=== PATIENT | female | born 1940 | race Caucasian/White ===

== ENCOUNTER 2023-07-16 15:00 | Outpatient (RCR) | payer MEDICARE, SELFPAY ==
[2023-06-27 16:14] VITALS: PULSE 72
== END 2023-07-24 17:33 | disposition home or self-care (01) ==
LOC: ANHCPREHAB 15:00
PROVIDERS: PCP Internal Medicine Cardiovascular Disease; Visit Provider Internal Medicine Cardiovascular Disease
DX: Z95.2 Presence of prosthetic heart valve (principal)
CPT/HCPCS: 93798

== ENCOUNTER 2023-12-06 07:21 | Observation (INO) | payer MEDICARE, SELFPAY ==
[2023-12-06] VITALS (15 sets, daily range): BP systolic 136–179; BP diastolic 51–90; PULSE 82–100; RESP 14–18; TEMP 36.4–36.8; O2SAT 94–100; BMI 28.0
--- NOTE | ~2023-12-06 | XR_ITS ---
EXAMINATION: XR chest 2V DATE: 12/06/2023 08:29 INDICATION: Dizziness. TECHNIQUE: Frontal and lateral views of the chest were obtained. COMPARISON: None. FINDINGS: There is no pneumonia, pleural effusion, or pneumothorax. The heart size is normal. There a re changes of aortic valve replacement. IMPRESSION: 1. No acute cardiopulmonary disease. Reviewed, dictated and finalized at location A.
--- NOTE | 2023-12-06 07:25 | ECG_ITS ---
Test Date: 2023-12-06 07:28:24 Measurements Intervals Welch Rate: 86 P: 57 DE: 206 QRS: 34 QRSD: 95 T: 40 QT: 393 QTc: 473 Interpretive Statements SINUS RHYTHM NONSPECIFIC ST AND T-WAVE ABNORMALITY No previous ECG available for comparison Electronically Signed On 12-06-2023 10:36:44 CDT by Maura Lugo M.D.
[2023-12-06 07:58] LABS: Basophils Absolute Auto 0.1 K/mm3 (0.0-0.1); Eosinophils Absolute Auto 0.1 K/mm3 (0-0.3); Eosinophils Percent Auto 2.1 % (0-4.4); Hematocrit 36.7 % (37.0-47.0); Hemoglobin 12.7 g/dL (12.0-15.0); Immature Granulocyte Absolute 0.05 K/mm3 (0.00-0.031); Immature Granulocyte Percent A 0.8 % (0-0.5); Lymphocytes Absolute Auto 1.48 K/mm3 (0.9-3.2); Lymphocytes Percent Auto 24.2 % (18.3-44.2); Mean Corpuscular HGB Conc 34.6 g/dl (32-36); Mean Corpuscular Hemoglobin 28.7 pg (26-34); Mean Platelet Volume 8.8 fl (7.4-10.4); Monocytes Absolute Auto 0.4 K/mm3 (0.1-0.6); Monocytes Percent Auto 6.9 % (2.6-8.5); Platelet Count Result 234 k/mm3 (150-375); Red Blood Count 4.42 M/mm3 (4.2-5.4); Red Cell Distribution Width 13.1 % (11.5-14.5); White Blood Count 6.1 K/mm3 (4.5-10.0)
[2023-12-06 08:02] LABS: Add Urine Microscopic? YES; Appearance Urine Clear (Clear); Bilirubin Urine Negative (Negative); Blood Urine Negative (Negative); Color Urine Dark Yellow (Yellow); Glucose Urine UA Negative (Negative); Ketones Urine Negative (Negative); Leukocyte Esterase Ur Negative LEU/UL (Negative); Nitrate Urine Negative (Negative); Protein Urine Negative (Negative); Specific Grav Ur 1.008 (1.001-1.035); Urobilinogen Urine 0.2 mg/dL (<2.0)
[2023-12-06 08:14] LABS: Alanine Aminotransferase 69 U/L (6-35); Albumin Level 4.2 g/dL (3.5-5.1); Alkaline Phosphatase 77 U/L (38-126); Anion Gap 13 mmol/L (4-12); Aspartate Amino Transferase 50 U/L (14-36); Bilirubin,Total 1.3 mg/dL (0.2-1.3); Blood Urea Nitrogen 14 mg/dL (7-17); Calcium 9.1 mg/dL (8.4-10.2); Carbon Dioxide 25 mmol/L (22-30); Chloride 89 mmol/L (98-107); Estimated CRCL calculation 51 ml/min; Estimated Glomerular Filt Rate > 60; Glucose 171 mg/dL (65-110); Potassium 2.7 mmol/L (3.4-5.0); Sodium 127 mmol/L (137-145)
--- NOTE | 2023-12-06 08:19 | ED.DIZZY ---
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 Patient states that she has been struggling with recurrent UTIs over the last several months. States that she has had multiple rounds of antibiotics she continues to have a lot of dysuria. Her PCP has an appointment set up with urology next month. Unfortunately, she has been increasingly lightheaded over the last several days. States that she thinks that she would faint if she stood up. Complains of mild nausea but no vomiting.. No pain. No fevers. No further complaints. Related Data Home Medications Medication Instructions Recorded Confirmed acetaminophen 325 mg PO QID PRN Pain (Scale 12/06/23 12/06/23 Score 1-3) alprazolam 0.5 mg tablet 0.5 mg PO TID PRN Anxiety 12/06/23 12/06/23 anastrozole 1 mg tablet 1 mg PO DAILY 12/06/23 12/06/23 apixaban 5 mg tablet (Eliquis) 5 mg PO BID 12/06/23 12/06/23 cholecalciferol (vitamin D3) 1,000 units BYMOUTH DAILY 12/06/23 12/06/23 diltiazem HCl 240 mg 240 mg PO DAILY 12/06/23 12/06/23 capsule,extended release 24 hr, controlled (DILT-XR) losartan 100 100 tablet PO DAILY 12/06/23 12/06/23 mg-hydrochlorothiazide 12.5 mg tablet rosuvastatin 10 mg tablet 10 mg PO DAILY 12/06/23 12/06/23 Allergies Allergy/AdvReac Type Severity Reaction Status Date / Time No Known Allergies Allergy Verified 12/06/23 09:47 Review of Systems Review of Systems: All systems reviewed & are unremarkable except as noted in HPI and below PMFSH Past Medical History Medical History Anxiety Atrial fibrillation Breast cancer Cataracts, bilateral Fibroid tumor Hypertension Hypothyroidism Osteoporosis Surgical History Surgical History H/O aortic valve replacement H/O lumpectomy H/O: hysterectomy Family History Family History Mother Congestive heart failure Sibling Congestive heart failure Social History Social History (Updated 12/06/23 @ 15:52 by Susan Torres APRN) Social History: Patient lives at home alone. She has 2 daughters. Years smoked: 25 Smoking status: Former smoker Second hand tobacco smoke exposure: No Alcohol intake: former Substance use: never Substance use type: does not use Do You Feel Safe in your Home?: Yes Lack of Transportation: No Lack of Food: Never True Current Housing: I Have Housing Concerned About Future Housing: No Difficulty Paying Gas/Electric Bills: No Difficulty Paying for Meds: No Currently Unemployed: No Education: Decline to Answer Difficulty w/ Childcare or Family Care: No Living arrangements: alone Spiritual care concerns: No Exam Narrative: GENERAL: Nontoxic, no acute distress, very pleasant and cooperative HEAD: Normocephalic, atraumatic. EYES: PERRLA and EOMI. ENT: Mucous membranes dry NECK: Supple. CHEST: Clear to auscultation. No respiratory distress. HEART: Regular rate and rhythm ABDOMEN: Soft, nontender, nondistended EXTREMITIES: Normal range of motion. No edema. SKIN: Warm, dry, no rash. NEURO: No focal deficits. Alert and oriented x3. PSYCH: Normal mood and affect. Course Vital Signs Vital signs: Vital Signs Temperature 97.8 F 12/06/23 07:21 Pulse Rate 84 12/06/23 07:21 Respiratory Rate 16 12/06/23 07:21 Blood Pressure 167/76 H 12/06/23 07:21 Pulse Oximetry 100 12/06/23 07:21 Oxygen Delivery Room Air 12/06/23 07:21 Temperature 97.0 F L 12/07/23 06:00 Pulse Rate 86 12/07/23 06:00 Respiratory Rate 20 12/07/23 06:00 Blood Pressure 157/87 H 12/07/23 06:00 Pulse Oximetry 99 12/07/23 06:00 Oxygen Delivery
[2023-12-06 09:10] LABS: Lipase 142 U/L (23-300); Magnesium 1.8 mg/dL (1.6-2.3)
[2023-12-06 09:14] LABS: INR 1.2; Prothrombin Time 15.2 Seconds (11.1-14.7)
[2023-12-06 09:15] LABS: Phosphorus < 1.0 mg/dL (2.5-4.5)
[2023-12-06 09:16] LABS: Partial Thromboplastin Time 29.3 Seconds (22.3-36.8)
[2023-12-06 09:22] LABS: Troponin I < 0.012 ng/mL (0.000-0.034)
[2023-12-06] MEDS: ACETAMINOPHEN 500 MG TABLET 1000 MG PO (09:52)
[2023-12-06] MEDS: POTASSIUM CHLORIDE 20 MEQ ER TABLET 40 MEQ PO (09:52)
[2023-12-06] MEDS: ONDANSETRON INJ 4 MG/2 ML VIAL IV PUSH (09:53)
[2023-12-06] MEDS: SODIUM CHLORIDE 0.9% IV 1,000 ML 999 ML IV CONT (09:53)
[2023-12-06] MEDS: POTASSIUM PHOS,M-BASIC-D-BASIC 40 MMOL in SODIUM CHLORIDE 0.9% IV 250 ML 43.89 MMOL IVPB (10:01)
--- NOTE | 2023-12-06 10:24 | PM.IMHP ---
H&P: HPI History of Present Illness Date/Time: 12/06/23 10:24 Chief Complaint: Dizziness, burning with urination Narrative: This is an 83-year-old female with a past medical history significant for atrial fibrillation on Eliquis, hypertension, aortic valve replacement, osteoporosis, hypothyroidism, anxiety, and breast cancer who presented to the emergency room with complaints of dizziness. The patient provides the following history with supplemented information from her daughter and son-in-law who remain at the bedside with the patient's permission. She reports starting Friday and she was having dizziness that was worsening with lying down flat but improved when she was up and moving around. She also reports a headache with chronic S pain you say it is, chills, 1 episode and nausea. She also reports constipation recently after being on 3 different antibiotics for urinary tract infections. She states in October this year she had a UTI for which she received 3 different antibiotics and she was also treated for a concurrent yeast infection. Since then she has been taking azo cabs-exr-pcqjuco for urinary symptoms. She has had persistent burning with urination despite a normal urinalysis. In the ED vitals were as followed, blood pressure 167/76, heart rate 83, pulse ox 98% on room air, and temperature 97.5?. She had a normal white count of 6.1, hemoglobin 12.7, PT 15.2, sodium 127, potassium 2.7, chloride 89, glucose 171, and phosphorus less than 1. Her urinalysis was completely negative. Her chest x-ray was clear. She was given potassium 40 mEq p.o., potassium 40 mEq IV, and potassium phosphate 40 millimoles, placed on telemetry and admitted to the medical-tele floor for further monitoring for electrolyte correction. Review of Systems Review of Systems: All systems reviewed & are unremarkable except as noted in HPI and below PMFSH Past Medical History Medical History Anxiety Atrial fibrillation Breast cancer Cataracts, bilateral Fibroid tumor Hypertension Hypothyroidism Osteoporosis Surgical History Surgical History H/O aortic valve replacement H/O lumpectomy H/O: hysterectomy Family History Family History Mother Congestive heart failure Sibling Congestive heart failure Social History Social History (Updated 12/06/23 @ 15:52 by Susan Torres APRN) Social History: Patient lives at home alone. She has 2 daughters. Years smoked: 25 Smoking status: Former smoker Second hand tobacco smoke exposure: No Alcohol intake: former Substance use: never Substance use type: does not use Do You Feel Safe in your Home?: Yes Lack of Transportation: No Lack of Food: Never True Current Housing: I Have Housing Concerned About Future Housing: No Difficulty Paying Gas/Electric Bills: No Difficulty Paying for Meds: No Currently Unemployed: No Education: Decline to Answer Difficulty w/ Childcare or Family Care: No Living arrangements: alone Spiritual care concerns: No Meds Home Medications and Allergies Home Medications Medication Instructions Recorded Confirmed Type acetaminophen 325 mg PO QID PRN Pain (Scale 12/06/23 12/06/23 History Score 1-3) alprazolam 0.5 mg tablet 0.5 mg PO TID PRN Anxiety 12/06/23 12/06/23 History anastrozole 1 mg tablet 1 mg PO DAILY 12/06/23 12/06/23 History apixaban 5 mg tablet (Eliquis) 5 mg PO BID 12/06/23 12/06/23 History cholecalciferol (vitamin D3) 1,000 units BYMOUTH DAILY 12/06/23 12/06/23 History diltiazem HCl 240 mg 240 mg PO DAILY 12/06/23 12/06/23 History capsule,extended release 24 hr, controlled (DILT-XR) furosemide 20 mg tablet 20 mg PO DAILY 12/06/23 12/06/23 History levothyroxine 88 mcg tablet 88 mcg PO QACBREAK 12/06/23 12/06/23 History losartan 100 100 tablet
--- NOTE | 2023-12-06 12:20 | ADMGEN ---
This patient, Mini Cano, was admitted to Medical Room 250-01. Patient/family oriented to hospital policies and general routines including ID bracelet, bed and alarms, visiting hours, pain management, procedures, bathroom and other care routines, personal items, smoking policy, room service/diet, and visiting hours. Information on how to activate the Rapid Response Team has been discussed. Patient/Family are encouraged to report perceived risks to care and to ask questions if they do not understand what they are told or what they should do.
[2023-12-06] MEDS: SODIUM CHLORIDE 0.9% IV 1,000 ML 100 ML IV CONT (13:16)
[2023-12-06 15:39] LABS: Troponin I < 0.012 ng/mL (0.000-0.034)
[2023-12-06] MEDS: FLUTICASONE PROPIONATE 0.05% NA SPR 16 GM BTL (*BKC) 2 SPRAY NASAL (17:35)
[2023-12-06] MEDS: LOSARTAN POTASSIUM 100 MG TABLET PO (17:35)
[2023-12-06 19:40] LABS: Phosphorus 3.1 mg/dL (2.5-4.5); Potassium 3.3 mmol/L (3.4-5.0)
[2023-12-06] MEDS: APIXABAN 5 MG TABLET PO (21:19)
[2023-12-06] MEDS: ALPRAZolam (*CRX) 0.5 MG TABLET PO (21:24)
[2023-12-07] VITALS: PULSE 84
[2023-12-07 04:00] VITALS: PULSE 73
[2023-12-07 05:26] LABS: Basophils Absolute Auto 0.1 K/mm3 (0.0-0.1); Basophils Percent Auto 1.2 % (0.2-1.2); Eosinophils Absolute Auto 0.2 K/mm3 (0-0.3); Eosinophils Percent Auto 3.2 % (0-4.4); Hematocrit 32.4 % (37.0-47.0); Hemoglobin 10.7 g/dL (12.0-15.0); Immature Granulocyte Absolute 0.02 K/mm3 (0.00-0.031); Immature Granulocyte Percent A 0.3 % (0-0.5); Lymphocytes Absolute Auto 3.08 K/mm3 (0.9-3.2); Lymphocytes Percent Auto 44.7 % (18.3-44.2); Mean Corpuscular Hemoglobin 28.9 pg (26-34); Mean Corpuscular Volume 87.6 fl (80-100); Mean Platelet Volume 8.4 fl (7.4-10.4); Monocytes Absolute Auto 0.5 K/mm3 (0.1-0.6); Monocytes Percent Auto 7.8 % (2.6-8.5); Neutrophils Percent Auto 42.8 % (45.5-73.1); Platelet Count Result 186 k/mm3 (150-375); Red Cell Distribution Width 13.8 % (11.5-14.5); White Blood Count 6.9 K/mm3 (4.5-10.0)
[2023-12-07] MEDS: LEVOTHYROXINE SODIUM 88 MCG TABLET PO (05:36)
[2023-12-07 05:39] LABS: Alanine Aminotransferase 55 U/L (6-35); Albumin Level 3.2 g/dL (3.5-5.1); Alkaline Phosphatase 51 U/L (38-126); Anion Gap 5 mmol/L (4-12); Aspartate Amino Transferase 32 U/L (14-36); Bilirubin,Total 0.7 mg/dL (0.2-1.3); Blood Urea Nitrogen 9 mg/dL (7-17); Calcium 7.6 mg/dL (8.4-10.2); Carbon Dioxide 26 mmol/L (22-30); Chloride 101 mmol/L (98-107); Estimated CRCL calculation 59 ml/min; Estimated Glomerular Filt Rate > 60; Glucose 99 mg/dL (65-110); Magnesium 2.1 mg/dL (1.6-2.3); Potassium 3.5 mmol/L (3.4-5.0); Sodium 132 mmol/L (137-145)
[2023-12-07 06:00] VITALS: BP 157/87; PULSE 86; RESP 20; TEMP 36.1; O2SAT 99
[2023-12-07 06:09] LABS: Thyroid Stimulating Hormone 0.185 uIU/mL (0.465-4.680)
[2023-12-07 08:43] LABS: Phosphorus 2.8 mg/dL (2.5-4.5)
--- NOTE | 2023-12-07 11:18 | PM.DS ---
DS: Admitting Diagnosis Discharge Date 12/07/23 Admitting Diagnosis dizziness DS: Discharge Diagnosis Discharge Diagnosis (1) Dizziness: Code(s): R42 - Dizziness and giddiness Status: Acute Assessment and Plan: Patient reports dizziness worse when lying down less associated with position changes. Orthostatic vital signs ordered Patient received a fluid bolus and was started on normal saline at 100 mL an hour Dizziness has seemed to resolve with IV fluids (2) Electrolyte abnormality: Code(s): E87.8 - Other disorders of electrolyte and fluid balance, not elsewhere classified Status: Acute Assessment and Plan: Potassium 2.7, Phosphorous less than 1, sodium 127 Patient is on Lasix 20 mg daily, and HTCZ-losartan Holding Lasix and HCTZ given low K+ and low Na Resume losartan for better blood pressure control Receiving potassium and potassium phosphate IV now Repeat BMP this afternoon (3) Dysuria: Code(s): R30.0 - Dysuria Status: Acute Assessment and Plan: ? if this could be interstitial cystitis. She was treated for a UTI in October with three different antibiotics. She has been taking AZO for pain control but it is no longer helping. She is going to be seeing a urologist in December for her dysuria and urinary incontinence. U/A is completely normal No leukocytosis, Afebrile She was recently treated for a yeast infection. She denies itching, discharge, foul order, or external pain. Plan DVT prophylaxis: Eliquis Glycemic control: NA Code Status: Full Code Disposition: This is an 83-year-old female here with dizziness and dysuria. She was found to have severe electrolyte derangements. She is being started on IV fluids, given electrolyte replacements, and placed on telemetry. Medication reconciliation obtained via the following: Nurse completed on admission The file time of this note does not necessarily represent the time the patient was seen. DS: Summary Hospital Course Reason for hospitalization: electrolyte derangement, hypokalemia, hypophosphatemia Hospital Course: This is an 83-year-old female with a past medical history significant for atrial fibrillation on Eliquis, hypertension, aortic valve replacement, osteoporosis, hypothyroidism, anxiety, and breast cancer who presented to the emergency room with complaints of dizziness. The patient provides the following history with supplemented information from her daughter and son-in-law who remain at the bedside with the patient's permission. She reports starting Friday and she was having dizziness that was worsening with lying down flat but improved when she was up and moving around. She also reports a headache with chronic S pain you say it is, chills, 1 episode and nausea. She also reports constipation recently after being on 3 different antibiotics for urinary tract infections. She states in October this year she had a UTI for which she received 3 different antibiotics and she was also treated for a concurrent yeast infection. Since then she has been taking azo attz-hxo-ynrvufu for urinary symptoms. She has had persistent burning with urination despite a normal urinalysis. In the ED vitals were as followed, blood pressure 167/76, heart rate 83, pulse ox 98% on room air, and temperature 97.5?. She had a normal white count of 6.1, hemoglobin 12.7, PT 15.2, sodium 127, potassium 2.7, chloride 89, glucose 171, and phosphorus less than 1. Her urinalysis was completely negative. Her chest x-ray was clear. She was given potassium 40 mEq p.o., potassium 40 mEq IV, and potassium phosphate 40 millimoles, placed on telemetry and admitted to the medical-tele floor for further monitoring for electrolyte correction. The patient received IV hydration with electrolyte correction with monitoring on tel
[2023-12-07] MEDS: LOSARTAN POTASSIUM 100 MG TABLET PO (11:19)
[2023-12-07] MEDS: ROSUVASTATIN 10 MG TABLET PO (11:19)
[2023-12-07] MEDS: dilTIAZem HCL CD 240 MG CAP.24HR PO (11:19)
[2023-12-07] MEDS: FLUTICASONE PROPIONATE 0.05% NA SPR 16 GM BTL (*BKC) 2 SPRAY NASAL (11:20)
[2023-12-07] MEDS: APIXABAN 5 MG TABLET PO (11:21)
[2023-12-07] MEDS: POTASSIUM CHLORIDE 20 MEQ PACKET (FOR LIQUID) 40 MEQ PO (11:27)
[2023-12-07] MEDS: hydroCHLOROthiazide 12.5 MG CAPSULE PO (14:17)
[2023-12-09 06:08] LABS: T3 Free 3.2 pg/mL (2.3-4.2)
== END 2023-12-07 14:50 | disposition home or self-care (01) ==
LOC: ANHED 09:13 → ANH2MED 12-07 05:36
PROVIDERS: Nurse Practitioner Acute Care; Admitting Provider Internal Medicine; Emergency Provider Emergency Medicine; PCP Internal Medicine; Visit Provider Family Medicine
DX: R42 Dizziness and giddiness (principal); E87.8 Other disorders of electrolyte and fluid balance, not elsewhere classified; R30.0 Dysuria; I48.91 Unspecified atrial fibrillation; F41.9 Anxiety disorder, unspecified; I10 Essential (primary) hypertension; E03.9 Hypothyroidism, unspecified; M81.0 Age-related osteoporosis without current pathological fracture; Z85.3 Personal history of malignant neoplasm of breast; Z87.891 Personal history of nicotine dependence; Z79.01 Long term (current) use of anticoagulants; Z95.2 Presence of prosthetic heart valve
CPT/HCPCS: 36415; 71046; 80053; 81001; 83690; 83735; 84100; 84132; 84436; 84443; 84480; 84484; 85025; 85610; 85730; 93005; 96361; 96374; 96375; 99285; A9270; G0378; J2405; J7030; J7050

== ENCOUNTER 2024-05-21 10:23 | Outpatient (CLI) | payer MEDICARE, SELFPAY ==
--- NOTE | ~2024-05-21 | XR_ITS ---
Exam: Abdomen 1V HISTORY: Lt nephrolithiasis follow up COMPARISON: None. TECHNIQUE: Supine images of the abdomen FINDINGS: Bowel gas pattern is non-obstructive. There is no free air or deep sulci. 3 mm calculus projecting over the interpolar region of the left kidney. No additional calculi are identified projecting over the remainder of the right kidney. Lung bases are unremarkable. Bones and soft tissues are unremarkable. Fecal stasis within the colon IMPRESSION: Nonspecific, nonobstructive bowel gas pattern. 3 mm left-sided renal calculus Reviewed, dictated and finalized at location A. E GRADER
--- OUTSIDE RECORDS SUMMARY | 2024-05-21 11:07 | XMS_ITS | Encounter Summary ---
Author Organization [facility] Address [address] [place] [address] Phone Care Team Providers Care Data Warehouse Architect Name Role Phone Memo Knox MD Primary Care Provider Justin Reid MD Unavailable [phone] Aris Shipley MD Unavailable Encounter Details Date Type Department Care Team (Late st Contact Info) Description 05/20/2024 Telephone [facility] Oncology [address] [place] [address] [id number] Justin Reid MD [address] [place] [id number] Social History Tobacco Use Types Packs/Day Years Used Date Smoking Tobacco: Former Cigarettes Smokeless Tobacco: Never Comments:30 years ago Alcohol Use Standard Drinks/Week Comments No 0 (1 standard drink = 0.6 oz pur e alcohol) [facility] Utilities Answer Date Recorded In the past 12 months has [employer] electric, gas, oil, or water company threatened to shut off services in your home? No 03/14/2023 Social Connection and Isolat ion Panel [NHANES] Answer Date Recorded In a typical week, how many times do you talk on the phone with family, friends, or neighbors? More than three times a week 03/14/2023 How often do you get togethe r with friends or relatives? More than three times a week 03/14/2023 How often do you attend chur ch or restorationism services? Never 03/14/2023 Do you belong to any clubs o r organizations such as zoroastrian groups, unions, fraternal or athletic groups, or school groups? No 03/14/2023 How often do you attend meet ings of the clubs or organizations you belong to? Never 03/14/2023 Are you , , di vorced, , never , or living with a partner? 03/14/2023 AUDIT-C Answer Date Recorded Q1: How often do you have a drink containing alcohol? Never 03/18/2024 Q2: How many drinks containi ng alcohol do you have on a typical day when you are drinking? Patient does not drink Q3: How often do you have si x or more drinks on one occasion? Never 03/18/2024 Overall Financial Resource Strain (CARDIA) Answe r Date Recorded How hard is it for you to pa y for the very basics like food, housing, medical care, and heating? Not hard at all 03/14/2023 PHQ-2 Answer Date Recorded PHQ-2 Total Score (If total score is 3 or more points, staff should administer the PHQ-9) 0 12/16/2023 Hunger Vital Sign Answer Date Recorded Within the past 12 months, y ou worried that your food would run out before you got the money to buy more. Never true 03/14/20 23 Within the past 12 months, t he food you bought just didn't last and you didn't have money to get more. Never true 03/14/2023 PRAPARE - Transportation Answer Date Re corded In the past 12 months, has l ack of transportation kept you from medical appointments or from getting medications? No 04/2022 In the past 12 months, has l ack of transportation kept you from meetings, work, or from getting things needed for daily living? No 03/14/2023 Housing Stability Vital Sign Answer Abdifatah e Recorded In the last 12 months, was t here a time when you were not able to pay the mortgage or rent on time? No 03/14/2023 In the last 12 months, how many places have you lived? 1 03/14/2023 In the last 12 months, was t here a time when you did not have a steady place to sleep or slept in a [place] [facility] [place] (including now)? No 03/14/2023 Personal Safety Answer Date Recorded Have you ever been in or are you currently in a harmful physical or emotional relationship or is someone making you feel afraid or unsafe? Denies 03/18/2024 Comments No Sex and Gender Information Value Date Recorded Sex Assigned at Not on file Legal Sex Female 11:53 PM [employer]ARRINGS F[employer]IC[employer] Gender Identity Not on file Sexual Orientation Not on file documented as of this encounter Miscellaneous Notes * Telephone Encounter - Karoline Dickinson RN - 05/20/2024 11:43 AM EARRINGS FABRICATOR Letter generated for Dr. Reid to sign in regards to tooth extraction. INGS FABRICATOR * Telephone Encounter - Nelly Coburn - 05/20/2024 11:13 AM CST Received a call from Dr. Hernandez's office ([phone]) stating they would like to perform an extraction on this Pt and would like to have her off of blood thinners for 5 days. Wanted to have clearance from Dr. Reid prior to doing so. Note routed to [facility] to advise. INGS FABRICATOR documented in this encounter Plan of Treatment Not on file documented as of this encounter Visit Diagnoses Not on filedocumented in this encounter Care Teams Data Warehouse Architect Relationship Specialty Start Date End Date Memo Knox MD PCP - General 07/12/16 Justin Reid MD Consulting Physician Hematology and Oncology 02/07/22 Aris Shipley MD [address] [place] [address] Interventional Cardiology 08/15/23 documented as of this encounter
--- OUTSIDE RECORDS SUMMARY | 2024-05-21 11:07 | XMS_ITS | Clinical Summary ---
Author Organization [facility] Address [address] [place] [address] Phone Care Team Providers Care Hand Drawer In Helper Name Role Phone OSCAR AQUINO ELOY Gonzalez Unavailable [phone] Reason for Visit and Chief Complaint gynecologic annual exam - The Chief Complaint is: annual Problems Includes: Problems addressed during this encounter and other active Problems Current Visit Onset Date Resolved Date Provider Conditio n Status Hypothyroidism 06/21/2013 HALIMA INIGUEZ NP-BC Active Last Documented On 4 9:51AM ; [facility] Past Visits Onset Date Resolved Date Provider Condition Status HYPERLIPIDEMIA NEC/NOS 04/24/2011 KYLE CHEN M.D. Active Last Documented On 2 1:24PM ; [facility] HYPERTENSION NOS 04/24/2011 NANCY CHEN M.D. Active Last Documented On 2 1:24PM ; [facility] Osteopenia 04/02/2010 HALIMA INIGUEZ NP-BC Act jose Last Documented On 06/23/2015 10:34AM ; [facility] Note: Managed by PCP - Dr. 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 Knox. Thank you! - Last Documented On 06/21/2013 9:52AM ; [facility] ? SCREEN MAL NEOP-RECTUMIn office procedures/*Clia Waived Labs: *FIT Test (Fecal Occult Test) - Last Documented On 06/21/2013 9:52AM ; [facility] - Clinical summary provided to patient - Last Documented On 06/21/2013 9:52AM ; [facility] - Follow-up visit 1 year or as needed - Last Documented On 06/21/2013 9:52AM ; [facility] Pending Tests Order Diagnosis Results Due Ordering P catarina In office procedures - *Clia Waived Labs *FIT Test (Fecal Occult Test) SCREEN MAL NEOP-RECTUM 07/05/13 HALIMA INIGUEZ [facility]- Last Documented On 4 9:44AM ; [facility] Instructions to patient Instructions for patient : B reast Self Exam discussed Last Documented On 4 9:35AM ; [facility] Lose weight Last Documented On 4 9:35AM ; [facility] Colonoscopy Handout given to patient Last Documented On 4 9:35AM ; [facility] Education and Decision Aids were provided during visit for: Patient Education: Daily rachael cium and vitamin D Last Documented On 4 9:35AM ; [facility] Patient Education: weight be aring exercise Last Documented On 4 9:35AM ; [facility] Assessments Includes: Assessments from this encounter Findings - NORMAL FEMALE EXAM - Last Documented On 06/21/2013 9:52AM ; [facility] - Screening Malig. Neoplasm Rectum - Last Documented On 06/21/2013 9:52AM ; [facility] Instructions Includes: Instructions from this encounter Instructions to patient Instructions for patient : B reast Self Exam discussed Last Documented On 4 9:35AM ; [facility] Lose weight Last Documented On 4 9:35AM ; [facility] Colonoscopy Handout given to patient Last Documented On 4 9:35AM ; [facility] Education and Decision Aids were provided during visit for: Patient Education: Daily rachael cium and vitamin D Last Documented On 4 9:35AM ; [facility] Patient Education: weight be aring exercise Last Documented On 4 9:35AM ; [facility] Medical Equipment - Implanted Devices Includes: Current Devices No Medical Equipment Recorded Medications Includes: Medications discussed during this encounter and other current Medications Current Medications (continue as prescribed) Simvastatin 20 MG OR TABS 04/24/2011 Provider: Diagnosis: Last Documented On 2 1:20PM By RAAD NAIK MA ; [facility] Levothyroxine Sodium 100 MCG OR TABS 04/24/2011 Prov ider: Diagnosis: Last Documented On 2 1:21PM By RAAD NAIK MA ; [facility] amLODIPine Besylate 5 MG OR TABS 04/24/2011 Provider : Diagnosis: Last Documented On 2 1:21PM By RAAD NAIK MA ; [facility] Centrum Silver OR TABS 04/24/2011 Provider: Diagnosis: Last Documented On 2 1:22PM By RAAD NAIK MA ; [facility] CVS Vitamin D 1000 UNIT OR CAPS 04/24/2011 Provider: Diagnosis: Last Documented On 2 1:23PM By RAAD NAIK MA ; [facility] PreserVision/Lutein OR CAPS 04/24/2011 Provider: Diagnosis: 20MG Last Documented On 2 1:23PM By RAAD NAIK MA ; [facility] MSM 1000 MG OR CAPS 04/24/2011 Provider: Diagnosis: Last Documented On 2 1:24PM By RAAD NAIK MA ; [facility] Past Medications on file Fosamax 70 MG OR TABS 10/22/2006 - 2007 Provider : Diagnosis: Last Documented On 05/02/2009 9:07AM By JIM BECERRA ; [facility] Medications Administered Includes: Administered Medications from this encounter No Administered Medications Recorded Vital Signs Includes: Vital Signs from this encounter Vital Name 06/21/2013 09:33A Blood Pressure Sitting L 140/70 BP Cuff Size Regular Height (in) 63.25 Weight (lb) 158 Body Mass Index (kg/m2) 27.8 Body Surface Area (m2) 1.8 Last Documented: On 06/21/2013 9:36AM ; [facility] Results Includes: Results discussed during this encounter No Results Recorded For Specified Dates History of Present Illness Includes: History of Present Illness from this encounter THIERNO SADLER is a 72 year old female. - Medication list reviewed. Social History Description Last Updated Non-smoker 06/23/2015 Last Documented On 4 9:32AM ; [facility] Not exercising regularly 06/23/2015 Last Documented On 4 9:32AM ; [facility] In monogamous relationship 06/21/2013 Last Documented On 4 9:52AM ; [facility] Not using alcohol 06/21/2013 Last Documented On 4 9:52AM ; [facility] Not using drugs 06/21/2013 Last Documented On 4 9:52AM ; [facility] Sexually active with 1 partners in the l ast year 06/21/2013 Last Documented On 4 9:52AM ; [facility] Social history unchanged 06/21/2013 Last Documented On 4 9:52AM ; [facility] Smoking status : Never smoked 06/21/2013 Last Documented On 4 9:52AM ; [facility] Procedures and Surgical History Includes: Procedures from this encounter Procedures Code Diagnosis Performing Provider Service L ocation Service Date low fat diet Last Documented On 4 9:35AM ; [facility] Preventive Medicine Services (medicare pt) G0101 Last Documented On 4 9:36AM ; [facility] a fecal occult blood test was negative 14230 Last Documented On 4 9:35AM ; [facility] normal history of Pap smear of cervix Last Documented On 4 9:39AM ; [facility] Surgical History Last Updated History of total abdominal hysterectomy 06/21/2013 Last Documented On 4 9:52AM ; [facility] History of hysterectomy MARC 1990-fibroid s 06/21/2013 Last Documented On 4 9:52AM ; [facility] Medical History Includes: Medical History addressed during this encounter Description Last Updated HYSTERECTOMY 06/23/2015 Last Documented On 4 9:32AM ; [facility] Aborta 2 06/23/2015 Last Documented On 4 9:32AM ; [facility] 4 06/23/2015 Last Documented On 4 9:32AM ; [facility] History of benign essential hypertension 06/23/2015 Last Documented On 4 9:32AM ; [facility] History of hyperlipidemia 06/23/2015 Last Documented On 4 9:32AM ; [facility] History of hypothyroidism 06/23/2015 Last Documented On 4 9:32AM ; [facility] History of thyroid disorder 06/23/2015 Last Documented On 4 9:32AM ; [facility] LMP: 1991 06/23/2015 Last Documented On 4 9:32AM ; [facility] Para 2 06/23/2015 Last Documented On 4 9:32AM ; [facility] Result: normal 06/23/2015 Last Documented On 4 9:32AM ; [facility] Result: normal 06/23/2015 Last Documented On 4 9:32AM ; [facility] Vaginal delivery 06/23/2015 Last Documented On 4 9:32AM ; [facility] Sexually active 06/21/2013 Last Documented On 4 9:52AM ; [facility] No recent change in medical history 06/12 Last Documented On 4 9:52AM ; [facility] History of a DEXA of the lat eral lumbar spine was performed [facility] Dr Knox 06/21/2013 Last Documented On 4 9:52AM ; [facility] History of complete colonoscopy [address] [place] office wn 06/21/2013 Last Documented On 4 9:52AM ; [facility] History of a screening mammogram was per formed 05/18/2013 06/21/2013 Last Documented On 4 9:52AM ; [facility] History of Pap smear done 2005 4 Last Documented On 4 9:52AM ; [facility] Family History Includes: Family History addressed during this encounter Description Last Updated Family history of hypertension self 06/12 Last Documented On 4 9:32AM ; [facility] Family history of malignant female breas t neoplasm niece @ 38 06/23/2015 Last Documented On 4 9:32AM ; [facility] Family history unchanged 06/21/2013 Last Documented On 4 9:52AM ; [facility] First child named MARLEE 04/24/2011 Last Documented On 4 9:32AM ; [facility] Second child named EUNICE 04/24/2011 Last Documented On 4 9:32AM ; [facility] Spouse name: Mac 04/02/2010 Last Documented On 4 9:32AM ; [facility] Family history of diabetes mellitus moth er-Late life 04/02/2010 Last Documented On 4 9:32AM ; [facility] Family history of hypercholesterolemia s elf 04/02/2010 Last Documented On 4 9:32AM ; [facility] Heart disease brother 04/02/2010 Last Documented On 4 9:32AM ; [facility] Family history of Cancer 05/02/2009 Last Documented On 4 9:32AM ; [facility] Family medical history of high blood pre ssure 05/02/2009 Last Documented On 4 9:32AM ; [facility] Review of Systems Includes: Review of Systems from this encounter Genitourinary: No pelvic pain and no postmenopausal bleeding. Mental Status Includes: Mental Status from this encounter No Mental Status Recorded Functional Status Includes: Functional Status from this encounter No Functional Status Recorded Physical Exam Includes: Physical Exam from this encounter Allergies Includes: Active Allergies No Known Allergies Encounters Encounter Provider Location Date Check-In Time Check-Out Time Diagnosis NEW TOP FORMER EXAM HALIMA INIGUEZ [facility] [employer] [place] 06/22/19 14 9:14AM 10:01AM Screening Malig. Neoplasm Rectum,Normal Female Exam Clinical Notes Includes: Clinical Notes from this encounter No Clinical Notes Recorded
--- OUTSIDE RECORDS SUMMARY | 2024-05-21 11:07 | XMS_ITS ---
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 06/20/19 24 Age-related osteoporosis wit hout current pathological fracture 06/20/2023 S/P TAVR (transcatheter aortic valve replacement ) 05/28/2023 Aortic stenosis 03/13/2023 Aortic valve stenosis 01/08/2023 Chronic fatigue 12/10/2022 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, estrogen receptor positive 01/09/2022 Cancer Staging:Pathologic stage from 01/14/2022:Stage 0(pTis (DCIS), cN0, cM0, G2, ER+, OR+, HER2: Not Assessed) - Signed by Kali Espino MD PhD on 02/07/2022 Overview (01/09/2022): Added automatically from request for surgery [id number] Nonrheumatic aortic valve stenosis 11/05/2021 BOYCE (dyspnea on exertion) 11/05/2021 Paroxysmal atrial fibrillation (CMS/HCC) 019 Chronic anticoagulation 10/21/2018 Acquired hypothyroidism 10/08/2016 Medicare annual wellness visit, subsequent 10/08 Mixed hyperlipidemia 08/28/2013 Overview (07/19/2016): HYPERLIPIDEMIA NEC/NOS Benign hypertension 08/28/2013 Overview (07/19/2016): BENIGN HYPERTENSION Assessment & Plan (12/16/2023 6:55 AM CDT): Recommend DASH diet, heart healthy lifestyle, exercise. Discussed the risks of hypertension. Current Oncology Plans No current plan information found. Other Current Plans denosumab (PROLIA) Injection* Plan Start Date:07/10/2023 Plan Provider:Justin Reid MD Linked Problems Osteoporosis due to aromatas e inhibitorAge-related osteoporosis without current pathological fracture Treatment Medications No medications scheduled. Past Plans No past plan information found. Radiation Treatments * No radiation treatments are documented for this patient in [facility]. Treatments may have been administered in another system. 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
--- OUTSIDE RECORDS SUMMARY | 2024-05-21 11:08 | XMS_ITS | Clinical Summary ---
Author Organization [facility] Address [address] [place] [address] Phone Care Team Providers Care Driver Retraining Instructor Name Role Phone ELOY MOORE MD Unavailable [phone] Reason for Visit and Chief Complaint gynecologic annual exam - The Chief Complaint is: Annual Problems Includes: Problems addressed during this encounter and other active Problems All Visits Onset Date Resolved Date Provider Condition S tatus Hypothyroidism 06/21/2013 HALIMA INIGUEZ NP-BC Active Last Documented On 4 9:51AM ; [facility] HYPERLIPIDEMIA NEC/NOS 04/24/2011 NANCY PÉREZ M.D. Active Last Documented On 2 1:24PM ; [facility] HYPERTENSION NOS 04/24/2011 NANCY CHEN M.D. Active Last Documented On 2 1:24PM ; [facility] Osteopenia 04/02/2010 HALIMA INIGUEZ NP-BC Act jose Last Documented On 06/23/2015 10:34AM ; [facility] Note: Managed by PCP - Dr. 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 HALIMA INIGUEZ NP-BC A ctive Last Documented On 0 8:49AM ; [facility] Plan of Treatment - Follow-up visit 1 year or as needed - Last Documented On 06/23/2015 10:34AM ; [facility] - Clinical summary provided to patient - Last Documented On 06/23/2015 10:34AM ; [facility] Pending Tests Order Diagnosis Results Due Ordering P catarina In office procedures - *Clia Waived Labs *FIT Test (Fecal Occult Test) Encounter for screening for malignant neoplasm of rectum 07/07/15 HALIMA INIGUEZ [facility] Last Documented On 6 1:01PM ; [facility] Instructions to patient Instructions for patient : B reast Self Exam discussed Last Documented On 6 10:05AM ; [facility] Colonoscopy Handout given to patient Last Documented On 6 10:05AM ; [facility] Education and Decision Aids were provided during visit for: Patient Education: Daily rachael cium and vitamin D Last Documented On 6 10:05AM ; [facility] Patient Education: weight be aring exercise Last Documented On 6 10:05AM ; [facility] Assessments Includes: Assessments from this encounter Findings - NORMAL FEMALE EXAM - Last Documented On 06/23/2015 10:34AM ; [facility] - Screening Malig. Neoplasm Rectum - Last Documented On 06/23/2015 10:34AM ; [facility] Instructions Includes: Instructions from this encounter Instructions to patient Instructions for patient : B reast Self Exam discussed Last Documented On 6 10:05AM ; [facility] Colonoscopy Handout given to patient Last Documented On 6 10:05AM ; [facility] Education and Decision Aids were provided during visit for: Patient Education: Daily rachael cium and vitamin D Last Documented On 6 10:05AM ; [facility] Patient Education: weight be aring exercise Last Documented On 6 10:05AM ; [facility] Medical Equipment - Implanted Devices Includes: Current Devices No Medical Equipment Recorded Medications Includes: Medications discussed during this encounter and other current Medications Discontinued / Stopped on this date on 04/24/2011 Aspirin Low Dose 81 MG OR TABS Provider: Diagnosis: Last Documented On 06/23/2015 10:22AM By KRISTEL HALL MA ; [facility] Current Medications (continue as prescribed) Simvastatin 20 MG OR TABS 04/24/2011 Provider: Diagnosis: Last Documented On 2 1:20PM By RAAD NAIK MA ; [facility] Levothyroxine Sodium 100 MCG OR TABS 04/24/2011 Prov ider: Diagnosis: Last Documented On 2 1:21PM By RAAD NAIK MA ; [facility] amLODIPine Besylate 5 MG OR TABS 04/24/2011 Provider : Diagnosis: Last Documented On 2 1:21PM By RAAD NAIK MA ; [facility] Centrum Silver OR TABS 04/24/2011 Provider: Diagnosis: Last Documented On 2 1:22PM By RAAD NAIK MA ; [facility] CVS Vitamin D 1000 UNIT OR CAPS 04/24/2011 Provider: Diagnosis: Last Documented On 2 1:23PM By RAAD NAIK MA ; [facility] PreserVision/Lutein OR CAPS 04/24/2011 Provider: Diagnosis: 20MG Last Documented On 2 1:23PM By RAAD NAIK MA ; [facility] MSM 1000 MG OR CAPS 04/24/2011 Provider: Diagnosis: Last Documented On 2 1:24PM By RAAD NAIK MA ; [facility] Past Medications on file Fosamax 70 MG OR TABS 10/22/2006 - 2007 Provider : Diagnosis: Last Documented On 05/02/2009 9:07AM By JIM BECERRA ; [facility] Medications Administered Includes: Administered Medications from this encounter No Administered Medications Recorded Vital Signs Includes: Vital Signs from this encounter Vital Name 06/23/2015 10:17A Blood Pressure Sitting L 142/88 BP Cuff Size Regular Height (in) 62.5 Weight (lb) 156 Body Mass Index (kg/m2) 28.1 Body Surface Area (m2) 1.7 Last Documented: On 06/23/2015 10:18A M ; [facility] Results Includes: Results discussed during this encounter No Results Recorded For Specified Dates History of Present Illness Includes: History of Present Illness from this encounter THIERNO SADLER is a 74 year old female. - Medication list reviewed. Social History Description Last Updated In monogamous relationship 06/23/2015 Last Documented On 6 10:34AM ; [facility] Non-smoker 06/23/2015 Last Documented On 6 10:34AM ; [facility] Not exercising regularly 06/23/2015 Last Documented On 6 10:34AM ; [facility] Not sexually active 06/23/2015 Last Documented On 6 10:34AM ; [facility] Not using alcohol 06/23/2015 Last Documented On 6 10:34AM ; [facility] Not using drugs 06/23/2015 Last Documented On 6 10:34AM ; [facility] Sexually active with 1 partners in the l ast year 06/23/2015 Last Documented On 6 10:34AM ; [facility] Smoking status : Never smoker 06/23/2015 Last Documented On 6 10:34AM ; [facility] Social history unchanged 06/23/2015 Last Documented On 6 10:34AM ; [facility] Procedures and Surgical History Includes: Procedures from this encounter Procedures Code Diagnosis Performing Provider Service L ocation Service Date low fat diet Last Documented On 6 10:05AM ; [facility] Preventive Medicine Services (medicare pt) G0101 Last Documented On 6 10:05AM ; [facility] fecal occult blood test was negative 05047 Last Documented On 6 10:05AM ; [facility] Surgical History Last Updated History of hysterectomy MARC 1991-fibroid s 06/23/2015 Last Documented On 6 10:34AM ; [facility] History of vaginal hysterectomy 1991 fib roids 06/23/2015 Last Documented On 6 10:34AM ; [facility] Recent change to surgical history 2015 Last Documented On 6 10:34AM ; [facility] Medical History Includes: Medical History addressed during this encounter Description Last Updated History of screening mammogram was perfo rmed 05/23/2015 06/23/2015 Last Documented On 6 10:34AM ; [facility] Not sexually active 06/23/2015 Last Documented On 6 10:34AM ; [facility] HYSTERECTOMY 06/23/2015 Last Documented On 6 10:34AM ; [facility] Aborta 2 06/23/2015 Last Documented On 6 10:34AM ; [facility] 4 06/23/2015 Last Documented On 6 10:34AM ; [facility] History of a DEXA of the lat eral lumbar spine was performed [address] Moore 06/23/2015 Last Documented On 6 10:34AM ; [facility] History of benign essential hypertension 06/23/2015 Last Documented On 6 10:34AM ; [facility] History of complete colonoscopy [address] [facility] [address] [place] office wnl 06/23/2015 Last Documented On 6 10:34AM ; [facility] History of hyperlipidemia 06/23/2015 Last Documented On 6 10:34AM ; [facility] History of hypothyroidism 06/23/2015 Last Documented On 6 10:34AM ; [facility] History of osteoporosis 06/23/2015 Last Documented On 6 10:34AM ; [facility] History of Pap smear done 2005 6 Last Documented On 6 10:34AM ; [facility] History of thyroid disorder 06/23/2015 Last Documented On 6 10:34AM ; [facility] LMP: 1991 06/23/2015 Last Documented On 6 10:34AM ; [facility] No recent change in medical history 06/12 Last Documented On 6 10:34AM ; [facility] Para 2 06/23/2015 Last Documented On 6 10:34AM ; [facility] Result: normal 06/23/2015 Last Documented On 6 10:34AM ; [facility] Result: normal 06/23/2015 Last Documented On 6 10:34AM ; [facility] Vaginal delivery 06/23/2015 Last Documented On 6 10:34AM ; [facility] Family History Includes: Family History addressed during this encounter Description Last Updated Family history of hypertension self 06/12 Last Documented On 6 10:34AM ; [facility] Family history of malignant female breas t neoplasm Niece 06/23/2015 Last Documented On 6 10:34AM ; [facility] Review of Systems Includes: Review of Systems from this encounter Breasts: No breast lump. Gastrointestinal: No pelvic pain. Genitourinary: No postmenopausal bleeding. No vaginal discharge. 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 Neoplasm Rectum,Normal Female Exam Clinical Notes Includes: Clinical Notes from this encounter No Clinical Notes Recorded
--- OUTSIDE RECORDS SUMMARY | 2024-05-21 11:08 | XMS_ITS | Encounter Summary ---
Author Organization [facility] Address [address] [place] [address] Care Team Providers Care Cabinet Builder Name Role Phone Memo Knox MD Primary Care Provider Memo Knox MD Primary Care Provider Memo Knox MD Primary Care Provider Amina Kaye ACCOUNT EXECUTIVE [employer] Unavailable [phone] Kali Espino MD PhD Unavailable [phone] Justin Reid MD Unavailable [phone] Jeffrey Padgett MD Unavailable [phone] Aris Shipley MD Unavailable Reason for Referral * Diagnostic Imaging (Routine) - Closed Specialty Diagnoses / Procedures Referred By Contac t Referred To Contact Procedures Dexa Axial Skeleton Bone Density 1 or 2 Site [facility] Information [facility] [address] [place] [id number] Phone: tel: fax: [facility] Referral ID Status Reason Start Date Expiration Date Visits Re quested Visits Authorized [id number] Closed 09/24/2018 04/04/2020 1 1 Encounter Details Date Type Department Care Team (Late st Contact Info) Description 07/07/2015 Orders Only [facility] Information Management [address] [place] [id number] Memo Knox MD [address] [place] [address] DR GONZALES [address] [place] [id number] Social History Tobacco Use Types Packs/Day Years Used Date Smoking Tobacco: Former Alcohol Use Standard Drinks/Week Comments Yes 0 (1 standard drink = 0.6 oz pur e alcohol) Comments Unknown Sex and Gender Information Value Date Recorded Sex Assigned at Not on file 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 Gender Identity Not on file Sexual Orientation Not on file documented as of this encounter Plan of Treatment Not on file documented as of this encounter Procedures Procedure Name Priority Date/Time Associated Diagnosis Comments DEXA AXIAL SKELETON BONE DENSITY 1 OR MORE SITES Schedule Routine, Read Routine (OP Routine) 07/07/2015 documented in this encounter Results * Dexa Axial Skeleton Bone Density 1 or 2 Site (07/07/2015) Anatomical Region Laterality Modality Body N/A Radiographic Freida ging Historical Provider MD JOINER DXA PROCEDURES Final Result documented in this encounter Visit Diagnoses Not on filedocumented in this encounter Additional Health Concerns Infection Onset Date Last Indicated Resolved Time COVID: Suspected 06/07/2023 06/07/2023 06/07/2023 2:54 PM SENIOR MARKETING MANAGER Influenza, adult 06/07/2023 06/07/2023 06/14/2023 3:05 AM SENIOR MARKETING MANAGER documented as of this encounter Care Teams Cabinet Builder Relationship Specialty Start Date End Date Memo Knox MD PCP - General 07/12/16 Memo Knox MD PCP - General 05/27/16 07/11/16 Memo Knox MD PCP - General 09/01/12 05/26/16 Amina Kaye NP Nurse Practitioner Nurse Practitioner 07/02/17 4 Kali Espino MD PhD [address] [place] [id number] Radiation Oncologist Radiation Oncology 02/07/2201/31 Justin Reid MD [address] [place] [id number] Consulting Physician Hematology and Oncology 02/07/22 Jeffrey Padgett MD [address] [place] [id number] Surgeon General Surgery 02/07/22 02/01/24 Aris Shipley MD [address] [facility] [address] [place] [address] Interventional Cardiology 08/15/23 documented as of this encounter
--- OUTSIDE RECORDS SUMMARY | 2024-05-21 11:08 | XMS_ITS | Clinical Summary ---
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 Role Phone Memo Knox MD Primary Care Provider Justin Pena MD Unavailable [phone] Aris Shipley MD Unavailable Allergies No known active allergies Medications lutein 40 mg capsule Take by mouth Active turmeric root extract 500 mg capsule Take 1 each by mouth daily Active mv-mn/folic ac/calcium/vit K1 (WOMEN'S 50 PLUS MULTIVITAMIN ORAL) Take 1 each by mouth daily Active calcium carbonate (CALCIUM 500 ORAL) Take 1 each by mouth daily Active acetaminophen (TYLENOL) 325 mg tablet Take 1 tablet (325 mg total) by mouth every 6 (six) hours as needed for pain Active cholecalciferol (VITAMIN D-3) 1,000 unit capsule Take 1 capsule (1,000 Units total) by mouth daily Active ALPRAZolam (XANAX) 0.5 mg tablet Take 1 tablet (0.5 mg total) by mouth 3 (three) times a day as needed for anxiety 30 tablet 5 4 07/16/19 25 Active levothyroxine (SYNTHROID) 75 mcg tablet Take 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 (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 90 tablet 3 4 Active losartan (COZAAR) 50 mg tablet Take 1 tablet (50 mg total) by mouth daily 90 tablet 3 4 12/18/19 25 Active Eliquis 5 mg tabletIndications: Paroxysmal atrial fibrillation (CMS/HCC) (HCC) TAKE 1 TABLET BY MOUTH TWICE DAILY 180 tablet 1 4 Active rosuvastatin (CRESTOR) 10 mg tabletIndications: Mixed hyperlipidemia TAKE 1 TABLET(10 MG) BY MOUTH DAILY 90 tablet 1 4 Active anastrozole (ARIMIDEX) 1 mg tablet TAKE 1 TABLET(1 MG) BY MOUTH DAILY 90 tablet 3 4 Active DILT-XR 240 mg 24 hr capsule TAKE 1 CAPSULE BY MOUTH DAILY 90 capsule 1 4 Active Active Problems Problem Noted Date Diagnosed Date Calculus of kidney 03/04/2024 Uric acid nephrolithiasis 02/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 06/20/2023 Osteoporosis due to aromatase inhibitor 06/20/19 Age-related osteoporosis wit hout current pathological fracture 06/20/2023 S/P TAVR (transcatheter aortic valve replacement ) 05/28/2023 Aortic stenosis 03/13/2023 Aortic valve stenosis 01/08/2023 Chronic fatigue 12/10/2022 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, estrogen receptor positive 01/09/2022 Cancer Staging:Pathologic stage from 01/14/2022:Stage 0(pTis (DCIS), cN0, cM0, G2, ER+, AL+, HER2: Not Assessed) - Signed by Kali Espino MD PhD on 02/07/2022 Overview (01/09/2022): Added automatically from request for surgery [id number] Nonrheumatic aortic valve stenosis 11/05/2021 BOYCE (dyspnea on exertion) 11/05/2021 Paroxysmal atrial fibrillation (CMS/HCC) 019 Chronic anticoagulation 10/21/2018 Acquired hypothyroidism 10/08/2016 Medicare annual wellness visit, subsequent 10/08 Mixed hyperlipidemia 08/28/2013 Overview (07/19/2016): HYPERLIPIDEMIA NEC/NOS Benign hypertension 08/28/2013 Overview (07/19/2016): BENIGN HYPERTENSION Assessment & Plan (12/16/2023 6:55 AM CDT): Recommend DASH diet, heart healthy lifestyle, exercise. Discussed the risks of hypertension. Resolved Problems Problem Noted Date Diagnosed Date Resolved Date Epidermoid cyst 05/29/2022 07/11/2022 Overview (05/29/2022): Added automatically from request for surgery [id number] 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 Cardiac arrest 07/02/2017 10/09/2017 Simple goiter 08/28/2013 10/09/2017 Overview (07/19/2016): SIMPLE GOITER Snoring 09/10/2011 10/09/2017 Overview (07/19/2016): Snoring Encounters Date Type Department Care Team Description 05/20/2024 Telephone [facility] Oncology [address] [facility] [address] [place] [address] Justin Pena MD 03/18/2024 7:34 AM CAPONIZER Anesthesia Event [facility] Operating Room 1 [place] [address] Kieran Damon MD Reynolds, Javed Figueroa MD 03/18/2024 7:30 AM CAPONIZER - 03/18/2024 8:40 AM CAPONIZER Surgery [facility] Operating Room [address] [place] [address] Stew Magallon MD LEFT LITHOTRIPSY EXTRACORPOREAL SHOCK WAVE - ESWL 03/18/2024 6:16 AM CAPONIZER - 03/18/2024 10:31 AM CAPONIZER Hospital Encounter [facility] Operating [facility] [address] [place] [address] Stew Magallon MD Discharge Disposition: Discharge to home or self care 03/10/2024 Telephone [facility] Primary Care at [place] [address] [facility] [address] [place] [id number] Memo Knox MD 03/05/2024 7:53 PM CAPONIZER - 03/05/2024 11:59 PM CAPONIZER Hospital Encounter [address] [address] Acquired hypothyroidism; Hypophosphatemia; Hyponatremia; Benign hypertension; Mixed hyperlipidemia; Vitamin D deficiency Discharge Disposition: Discharge to home or self care 03/05/2024 1:30 PM CAPONIZER Lab [facility] Outpatient Lab at [address] [address] Acquired hypothyroidism (Primary Dx) 03/04/2024 11:00 AM CAPONIZER Anesthesia Event [facility] Operating Room 1 [place] [address] Kieran Damon MD Reynolds, Ethan Emerson, MD 03/04/2024 9:20 AM CAPONIZER - 03/04/2024 11:59 PM CAPONIZER Hospital Encounter [facility] 1 [place] [address] Discharge Disposition: Discharge to home or self care 03/04/2024 9:15 AM CAPONIZER - 03/04/2024 10:00 AM CAPONIZER Hospital Encounter [facility] Operating Room [address] [place] [address] Stew Magallon MD Discharge Disposition: Discharge to home or self care 03/04/2024 Telephone [facility] Cardiology [address] [place] [address] Aris Shipley MD from Last 3 Months Immunizations Name Administration Dates Next Due Influenza, Quad, Adjuvantate d, Intramuscular 01/04/2020 Influenza, Quadrivalent, Hig h Dose, Preservative Free, Intrr 03/14/2023,02/14/2022,01/18/2021 Influenza, Quadrivalent, Spl it, Preservative Free, Intramuscular 01/17/2014,03/30/2013 Influenza, Trivalent, High D ose, Split, Preservative Free, Intramuscular 02/10/2019,04/09/2018,02/22/2015,04/24 Influenza, Trivalent, IM (MDV) 03/30/2013,2012 Influenza, Trivalent, Preser vative Free, Intramuscular 01/04/2020 Influenza, Unspecified 01/15/2022,2018(Deferred: Patient Refused) Moderna SARS-CoV-2 Monovalen t Vaccination (12+ YRS) 07/01/2020,06/01/2020 Pfizer SARS-CoV-2 Monovalent Vaccination (12+ Yrs) PURPLE 07/01/2020 Pneumococcal Conjugate PCV 13 10/09/2017 Pneumococcal Polysaccharide PPV23 09/15/2012 Tdap 09/07/2010 ZOSTER LIVE 08/20/2011 ZOSTER Recombinant 04/19/2019,02/15/2019 Surgical History Surgery Date Site/Laterality Comments HYSTERECTOMY 04/14/1989 - 04/13/1990 partial . Uterine fibroids BREAST BIOPSY 06/20/2017 Left benign stereotactic bx BREAST BIOPSY 12/26/2021 Right BREAST LUMPECTOMY 01/14/2022 Right br ca CARDIAC CATHETERIZATION OTHER SURGICAL HISTORY cyst excision - left abdomen SUPRAVALVULAR AORTIC STENOSIS REPAIR COLONOSCOPY Medical History Medical History Date Comments Hx Other Medical 2007 vascular lesion s (liver) Hx Other Medical 01-valve pipe irrigator Osteoporosis Osteoporosis Hyperlipidemia HTN (hypertension) Hypothyroidism Fibrocystic breast Arrhythmia Atrial Fibrillat ion Cancer (CMS/HCC) (HCC) right carissa ast cancer PONV (postoperative nausea and vomiting) Sleep apnea undiagnosed, but observed Aortic valve stenosis Heart murmur Syncope Anxiety Breast cancer (HCC) 2021 no radiation /chemo Family History Medical History Relation Name Comments Other Brother 2 Polio; Heart failure Brother 3 Congestive hea rt failure; Cause of : Congestive heart failure Prostate cancer Father Cancer -pros kay; Cause of : Cancer -prostate Diabetes Mother Diabetes mellit ; Heart failure Mother Congestive hea rt failure; Cause of : Congestive heart failure Breast cancer Niece kia Breast cancer Sister Ovarian cancer Neg Hx Thyroid cancer Neg Hx Relation Name Status Comments Brother 1 Brother 2 Brother 3 Father (Age 95) Mother (Age 64) Niece kia Sister Social History Tobacco Use Types Packs/Day Years Used Date Smoking Tobacco: Former Cigarettes Smokeless Tobacco: Never Tobacco Cessation:Counseling Given: Not Answered Comments:30 years ago Alcohol Use Standard Drinks/Week Comments No 0 (1 standard drink = 0.6 oz pur e alcohol) [facility] Utilities Answer Date Recorded In the past 12 months has TRAFI, gas, oil, or water [employer] threatened to shut off services in your [...] week 03/14/2023 How often do you attend [facility] or zoroastrianism services? Never 03/14/2023 Do you belong to any clubs o r organizations such as nondenominational groups, unions, fraternal or athletic groups, or [...] place to sleep or slept in a custodial (including now)? No 03/14/2023 Personal Safety Answer Date Recorded Have you ever been in or are you currently in a harmful physical or emotional relationship or is someone making you feel afraid or unsafe? Denies 03/18/2024 Comments No Sex and Gender Information Value Date Recorded Sex Assigned at Not on file Legal Sex Female 11:53 PM CAPONIZER Gender Identity Not on file Sexual Orientation Not on file Obstetrics History Para Term AB IAB SAB Ectopic Multiple Livin g Live Births 2 2 2 Date Outcome GA Total Labor Labor/2nd/3rd Weight Sex Type Anes PTL Merle A1 A5 Name Clin Term Term Last Filed Vital Signs Vital Sign Reading Time Taken Comments Blood Pressure 132/76 03/18/2024 3:16 PM CAPONIZER Pulse 64 03/18/2024 3:16 PM CAPONIZER Temperature 36.4 C (97.6 F) 03/18/2024 3:16 PM CAPONIZER Respiratory Rate 18 03/18/2024 3:16 PM CAPONIZER Oxygen Saturation 97% 03/18/2024 3:16 PM CAPONIZER Inhaled Oxygen Concentration - - Weight 71.5 kg (157 lb 10.1 oz) 03/18/2024 6:25 AM CAPONIZER Height 157.5 cm (5' 2 ) 03/18/2024 6:25 AM CAPONIZER Body Mass Index 28.83 03/18/2024 6:25 AM CAPONIZER Plan of Treatment Health Maintenance Due Date Last Done Comments Hepatitis B Screening 1958 DTaP/Tdap/Td Vaccine (2 - Td or Tdap) 09/07/2020 09/07/2010 Colon Cancer Screening-DNA Stool 02/08/2023 02/09/2020, 10/22/2016, 10/21/2016, Additional history exists Covid-19 Vaccine (2023-2 5 season) 2023 02/18/2021, 07/01/2020, 07/01/2020, Additional history exists Influenza Vaccine (#1) 2023 , 02/14/2022, 01/15/2022, Additional history exists Well Visit 65+ 11/17/2024 11/18/2023, 08/0 07/2022, 11/07/2021, Additional history exists Depression Screening 12/15/2024 12/16/2023, 10/24/2023, 03/28/2023, Additional history exists Breast Cancer Screening-Mammogram 12/25/2024 12/26/2023, 10/30/2022, 10/19/2021, Additional history exists Fall Risk Assessment 03/04/2025 03/04/2024, 12/16/2023, 10/24/2023, Additional history exists Osteoporosis Screening-Bone Density Scan 05/15/2025 05/15/2023, 10/04/2019, 07/07/2015, Additional history exists Pneumococcal vaccine 65+ Completed 10/09/2017, 07/2012 Zoster Vaccine Completed 04/19/2019, 07/2018, 08/20/2011 Medical Devices Implanted Type Area Cook Jelly Device Identifier Shelf Expiration Date Model / Serial / Lot Marker Breast Biopsy Mammomark Cormark Collagen Titanium U Tissue Mammotome Revolve 8 Ga Probe - [id number] - [id number] Implanted:Qty: 1 on 06/20/2017 at [facility] Breast Left: Breast [employer] 03/01/2018 [id number] / [id number] / [employer] Mammostar Tissue Barbell Marker Breast Biopsy Beta Glucan Ceramic [id number] - [id number] Implanted:Qty: 1 on 12/26/2021 at [facility] Clip [employer] [id number] 08/14/2026 [id number] / / [id number] Access Closure Inc Device 10ml 5fr Closure Mynx Control 2 Mode Balloon Catheter [id number] - [id number] Implanted:Qty: 1 on 02/06/2023 by Aris Shipley MD at [facility] Access [employer] 03/13/2024 [id number] / / [id number] [employer] Device Clsr Perclose Prostyle Sut-Mediatd Closure-Repair Sys [id number] - [id number] Implanted:Qty: 1 on 03/13/2023 by Aris Shipley MD at [facility] [employer] 11/11/2024 [id number] / / [id number] [employer] Virtual Kit Valve Coronary Aortic Tissue Pedro 3 Ultra 23mm [id number] - [id number] - [id number] Implanted:Qty: 1 on 03/13/2023 by Aris Shipley MD at [facility] [employer] 11/27/2025 [id number] / [id number] / [employer] Device Vascular Closure Femoral Artery Bioabsorbable Dual Method Vascade 6-7fr Collagen [id number] - [id number] Implanted:Qty: 1 on 03/13/2023 by Aris Shipley MD at [facility] [employer] 07/22/2024 [id number] / / [id number] Explanted Type Area Cook Jelly Device Identifier Shelf Expiration Date Model / Serial / Lot [employer] [place] 20ga 5cm Reposition J Curve Wire Centimeter Joss Stabilizer [id number] - [id number] - [id number] Explanted:Qty: 1 on 01/14/2022 at [facility] Breast Right: Breast [employer] 12/01/2026 [id number] / Description:Implanted by Dr. Salinas prior to surgery, explanted by surgeon Procedures Procedure Name Priority Date/Time Associated Diagnosis Comments AL AN ELECTIVE SUPRAGLOTTIC AIRWAY Routine 03/18/2024 7:52 AM CAPONIZER LITHOTRIPSY EXTRACORPOREAL SHOCK WAVE - ESWL 03/18/2024 7:34 AM CAPONIZER Calculus of kidney ECG 12-LEAD STAT 03/18/2024 7:00 AM CAPONIZER XR KUB IP Routine 03/18/2024 6:38 AM CAPONIZER EGFR Routine 03/05/2024 3:00 PM CAPONIZER Hypophosphatemia Hyponatremia Benign hypertension Mixed hyperlipidemia PHENYTOIN LEVEL, TOTAL Routine 03/05/2024 3:00 PM CAPONIZER Hypophosphatemia Hyponatremia Benign hypertension Mixed hyperlipidemia VITAMIN D 25 HYDROXY Routine 03/05/2024 3:00 PM CAPONIZER Vitamin D deficiency COMPREHENSIVE METABOLIC PANEL Routine 03/05/2024 3:00 PM CAPONIZER Hypophosphatemia Hyponatremia Benign hypertension Mixed hyperlipidemia LIPID PANEL Routine 03/05/2024 3:00 PM CAPONIZER Hypophosphatemia Hyponatremia Benign hypertension Mixed hyperlipidemia TSH Routine 03/05/2024 3:00 PM CAPONIZER Acquired hypothyroidism XR KUB IP Routine 03/04/2024 9:34 AM CAPONIZER DIAGNOSTIC MAMMOGRAM BILATERAL W RAMON Schedule Routine, Read Routine (OP Routine) 12/26/2023 9:06 AM CDT Malignant neoplasm of central portion of right breast in female, estrogen receptor positive (HCC) DEXA AXIAL SKELETON BONE DENSITY 1 OR MORE SITES Schedule Routine, Read Routine (OP Routine) 05/15/2023 10:32 AM CAPONIZER History of ongoing treatment with 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 STOOL DNA COLOGUARD Routine 02/09/2020 6:30 AM CDT Colon cancer screening Screening for rectal cancer from Last 3 Months or Most Recently Relevant to Health Maintenance Results * AL AN ELECTIVE SUPRAGLOTTIC AIRWAY (03/18/2024 7:52 AM CAPONIZER) Narrative Abdiel Parson CRNA - 03/18/2024 7:52 AM CAPONIZER Abdiel Parson CRNA 03/18/2024 7:52 AM Airway Patient location: OR Urgency: elective Indications for airway management: anesthesia Difficult airway: no Staff: Placed by: KRISTIE: Abdiel Parson CRNA Emergent airway documentation: Risks and benefits discussed: yes Consent obtained: yes Consent given by: patient Airway prep: Mask difficulty assessment: 0 - not attempted Spontaneous ventilation during airway: absent Sedation level during airway: GA Final airway details: Final airway type: supraglottic airway Final supraglottic airway: classic SGA size: 3 Number of attempts: 1 Planned trial extubation: yes us Kieran Damon MD ANESTHESIA ORDERABLES Fi nal Result * ECG 12 lead (03/18/2024 7:00 AM CAPONIZER) 03/18/2024 7:00 AM CAPONIZER Narrative [facility] - 03/18/2024 8:48 AM CAPONIZER Vent Rate: 69 bpm RR Interval: 865 msec AL Interval: 216 msec QRS Duration: 96 msec QT Interval: 423 msec QTC Interval: 442 msec P-R-T [place]: 41 - -6 - 2 degrees IMPRESSION: SINUS RHYTHM WITH FIRST DEGREE AV BLOCK POSSIBLE LEFT ATRIAL ENLARGEMENT [-0.1mV P WAVE IN V1/V2] LOW QRS VOLTAGE IN PRECORDIAL LEADS [QRS DEFLECTION < 1.0 mV IN CHEST LEADS] POSSIBLE ANTERIOR MYOCARDIAL INFARCTION , OF INDETERMINATE AGE [30 ms Q WAVE IN V3/V4, OR R < 0.2 mV IN V4] INFERIOR MYOCARDIAL INFARCTION , PROBABLY OLD [40+ ms Q WAVE AND/OR ST/T ABNORMALITY IN II/aVF] ABNORMAL ECG Compared prior EKG, heart rate has decreased Electronically Signed By: Thiago Levine MD Javed Sanchez MD ECG ORDERABLES Final Result [facility] * XR Kub (03/18/2024 6:38 AM CAPONIZER) Anatomical Region Laterality Modality Body, Abdomen N/A Computed Radiogr aphy 03/21/2024 4:05 PM CAPONIZER Narrative 03/21/2024 4:09 PM CAPONIZER EXAM DESCRIPTION: XR KUB REASON FOR STUDY: Pre-operative Exam Preop for kidney stone Side? TECHNIQUE: Single radiographic view of the abdomen. COMPARISON: 03/04/2024 FINDINGS: BOWEL: Nonobstructive gas pattern. There is a large amount of stool throughout the colon. SOFT TISSUES: There is a small faint opacity projecting over the left renal shadow. This is difficult to characterize on this exam. LINES/TUBES: None. BONES: No acute osseous abnormality. IMPRESSION: Large amount of stool throughout the colon. Possible small left renal calculus. Correlation with a CT of the abdomen is recommended. THIS IS AN ELECTRONICALLY VERIFIED FINAL REPORT 03/21/2024 4:09 PM - Electronically signed by Krish Weston M.D. SAW: SAW Report ID: [id number] Reading Location: [id number] Procedure Note Cornelius Weston MD - 03/21/2024 EXAM DESCRIPTION: XR KUB REASON FOR STUDY: Pre-operative Exam Preop for kidney stone Side? TECHNIQUE: Single radiographic view of the abdomen. COMPARISON: 03/04/2024 FINDINGS: BOWEL: Nonobstructive gas pattern. There is a large amount of stool throughout the colon. SOFT TISSUES: There is a small faint opacity projecting over the leftrenal shadow. This is difficult to characterize on this exam. LINES/TUBES: None. BONES: No acute osseous abnormality. IMPRESSION: Large amount of stool throughout the colon. Possible small left renal calculus. Correlation with a CT of the abdomenis recommended. THIS IS AN ELECTRONICALLY VERIFIED FINAL REPORT 03/21/2024 4:09 PM - Electronically signed by Krish Weston M.D. SAW: SAW Report ID: [id number] Reading Location: [id number] Stew Magallon MD IMG XR PROCEDURES Fi nal Result * eGFR (03/05/2024 3:00 PM CAPONIZER) eGFR 70 >=60 mL/min/1. 73 m2 Comment: Interpretive Data Reference Interval Normal >/= 90 mL/min/1.73m2 Mildly decreased* 60 - 89 mL/min/1.73m2 Mildly to moderately decreased 45 - 59 mL/min/1.73m2 Moderately to severely decreased 30 - 44 mL/min/1.73m2 Severely decreased 15 - 29 mL/min/1.73m2 Kidney Failure < 15 mL/min/1.73m2 *Relative to young adult level Estimated glomerular filtration rate is determined by the 2020 CKD-EPI equation recommended by the National Kidney Foundation (A Unifying Approach to GFR Estimation: Recommendations of the NKF-ASK Task Force on Reassessing the Inclusion of Race in Diagnosing Kidney Disease, JASN 2020). The CKD-EPI equation should not be used for patients with unstable renal function and has not been validated in children and those over 70. Current interpretive data was last reviewed 2021. Blood 03/05/2024 3:00 PM CAPONIZER 03/05/2024 8:45 PM CAPONIZER Tyron FELICIANO LAB BLOOD ORDERABLES Fi nal Result Performing Organization Address City/[facility] Co de Phone Number ILLIANA CASTRO [address] [facility] [place] [address] * Vitamin D 25 hydroxy (03/05/2024 3:00 PM CAPONIZER) Vitamin D 25-OH 34 30 - 80 ng/mL Blood 03/05/2024 3:00 PM CAPONIZER 03/05/2024 8:24 PM CAPONIZER Tyron FELICIANO LAB BLOOD ORDERABLES Fi nal Result Performing Organization Address [facility] Co de Phone Number LILIANA CASTRO [address] [facility] [place] [address] * TSH (03/05/2024 3:00 PM CAPONIZER) Thyroid Stimulating Hormone 0.46 0.30 - 4.20 mcIUnit/mL Blood 03/05/2024 3:00 PM CAPONIZER 03/05/2024 8:24 PM CAPONIZER Tyron FELICIANO LAB BLOOD ORDERABLES Fi nal Result Performing Organization Address [facility] de Phone Number LILIANA CASTRO [address] [facility] [place] [address] * (ABNORMAL) Phenytoin level, total (03/05/2024 3:00 PM CAPONIZER) Phenytoin <0.8(L) 10.0 - 20.0 mcg/mL Blood 03/05/2024 3:00 PM CAPONIZER 03/05/2024 8:24 PM CAPONIZER Tyron FELICIANO LAB BLOOD ORDERABLES Fi nal Result LILIANA CASTRO [address] [facility] [place] [address] * (ABNORMAL) Lipid panel (03/05/2024 3:00 PM CAPONIZER) Cholesterol 170 30 - 199 mg/dL Comment: Interpretive Data Ages < or = 19 years Acceptable: <170 mg/dL Borderline high: 170-199 mg/dL High: >or= 200 mg/dL Ages > or = 20 years Desirable: <200 mg/dL Borderline high: 200-239 mg/dL High: >or= 240 mg/dL Literature References: 1. Expert Panel on Integrated Guidelines for Cardiovascular Health and Risk Reduction in Children and Adolescents. Pediatrics 2011;128:S213 2. NCEP Expert Panel. Circulation 2004;110:227 Current Interpretive Data was last revised on 2017. Triglycerides 239(H) <=149 mg/dL LILIANA CASTRO Comment: Interpretive Data Ages < or = 9 years Acceptable: <75 mg/dL Borderline high: 75-99 mg/dL High: >or= 100 mg/dL Ages 10 to 20 years Acceptable: <90 mg/dL Borderline high: 90-129 mg/dL High: >or= 130 mg/dL Ages > or = 20 years Desirable: <150 mg/dL Borderline high: 150-199 mg/dL High: 200-499 mg/dL Very high: >or= 499 mg/dL Literature References: 1. Expert Panel on Integrated Guidelines for Cardiovascular Health and Risk Reduction in Children and Adolescents. Pediatrics 2011;128:S213 2. NCEP Expert Panel. Circulation 2004;110:227 Current Interpretive Data was last revised on 2017. HDL 64 >=40 mg/dL LILIANA CASTRO Comment: Interpretive Data Ages < or = 19 years Acceptable: >45 mg/dL Borderline low: 40-45 mg/dL Low: <40 mg/dL Ages > or = 20 years Desirable: >or= 60 mg/dL Low: <40 mg/dL Literature References: 1. Expert Panel on Integrated Guidelines for Cardiovascular Health and Risk Reduction in Children and Adolescents. Pediatrics 2011;128:S213 2. NCEP Expert Panel. Circulation 2004;110:227 Current Interpretive Data was last revised on 2017. LDL, calculated 68 <=129 mg/dL LILIANA CASTRO Comment: Interpretive Data Ages < or = 19 years Acceptable: <110 mg/dL Borderline high: 110-129 mg/dL High: >or= 130 mg/dL Ages > or = 20 years Optimal: <100 mg/dL Near optimal: 100-129 mg/dL Borderline high: 130-159 mg/dL High: >160 mg/dL Calculated using the Kenny LDL-C estimating equation. This equation was implemented on 2023. Prior to this date LDL-C was estimated using the Friedewald equation. Literature References: 1. Expert Panel on Integrated Guidelines for Cardiovascular Health and Risk Reduction in Children and Adolescents. Pediatrics 2011;128:S213 2. NCEP Expert Panel. Circulation 2004;110:227 3. Kenny Hawkins et al. CHEMO Cardiol. 2019August 12;5(5):540-548. doi: 10.1001/jamacardio.2020.0013 Current Interpretive Data was last revised on 2023. Non-HDL Cholesterol 106 mg/dL LILIANA CASTRO Comment: Interpretive Data Ages < or = 19 years Acceptable: <120 mg/dL Borderline high: 120-144 mg/dL High: >145 mg/dL Ages > or = 20 years When triglycerides are >200 mg/dL, Non-HDL cholesterol is a secondary target of therapy with treatment goals that are 30 mg/dL greater than the LDL cholesterol target. Literature References: 1. Expert Panel on Integrated Guidelines for Cardiovascular Health and Risk Reduction in Children and Adolescents. Pediatrics 2011;128:S213 2. NCEP Expert Panel. Circulation 2004;110:227 Current Interpretive Data was last revised on 2017. Chol/HDL ratio 3 LILIANA CASTRO Blood 03/05/2024 3:00 PM CAPONIZER 03/05/2024 8:24 PM CAPONIZER us Tyron FELICIANO LAB BLOOD ORDERABLES Fi nal Result LILIANA CASTRO [address] Department [place] [address] * Comprehensive metabolic panel (03/05/2024 3:00 PM CAPONIZER) Sodium 135 135 - 145 mmol/L Potassium, pl 3.6 3.3 - 4.9 mmol/L [facility] Chloride 97 97 - 110 mmol/L [facility] CO2 26 22 - 32 mmol/L [facility] Anion gap 12 2 - 15 mmol/L [facility] BUN 8 6 - 25 mg/dL [facility] Creatinine 0.84 0.60 - 1.10 mg/dL [facility] Glucose 151 70 - 199 mg/dL [facility] Comment: Interpretive Data Fasting glucose >/= 126 mg/dl is diagnostic for diabetes. Fasting is defined as no caloric intake for at least 8 hours. Fasting glucose between 100 mg/dl to 125 mg/dl is diagnostic of prediabetes. In a patient with classic symptoms of hyperglycemia or hyperglycemic crisis, a random glucose >/= 200 mg/dl is diagnostic for diabetes. In the absence of unequivocal hyperglycemia, results should be confirmed by repeat testing. The classification and Diagnosis of Diabetes Diabetes Care 2021; 46: S19-S40. Current interpretive data was last revised 2022. Calcium 9.0 8.5 - 10.3 mg/dL [facility] Bilirubin, total 0.4 0.1 - 1.2 mg/dL [facility] Protein, pl 6.5 6.5 - 8.5 g/dL [facility] Albumin 4.1 3.5 - 5.0 g/dL [facility] Alk phos 77 40 - 130 Units/L [facility] ALT 11 7 - 45 Units/L [facility] AST 24 10 - 45 Units/L [facility] Blood 03/05/2024 3:00 PM CAPONIZER 03/05/2024 8:24 PM CAPONIZER us Tyron FELICIANO LAB BLOOD ORDERABLES Fi nal Result LILIANA CASTRO [address] Department [place] [address] * XR Kub (03/04/2024 9:34 AM CAPONIZER) Anatomical Region Laterality Modality Body, Abdomen N/A Computed Radiogr aphy 03/07/2024 6:34 PM CAPONIZER Narrative 03/07/2024 6:38 PM CAPONIZER EXAM DESCRIPTION: XR KUB REASON FOR STUDY: ESWL Pre-op. Kidney stones, L side. TECHNIQUE: Single radiographic view of the abdomen. COMPARISON: Prior exam 02/02/2024 FINDINGS: 2 mm calcification projects lateral to the lateral margin of the right kidney on views of the abdomen and pelvis. Tiny 2 mm calcification projects over the interpolar region of the left kidney. Moderate stool is seen of the colon with no obstruction. This does overlap portions of both kidneys. No acute osseous findings. 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 Trivial of the pubic symphysis. Mild spondylosis lumbar spine. IMPRESSION: 2 mm calcification projects over the interpolar region of the left kidney. Wall calcification projects lateral to the right kidney as was previously seen. Moderate stool is seen of the colon. This overlaps portions of the kidneys decreases sensitivity. THIS IS AN ELECTRONICALLY VERIFIED FINAL REPORT 03/07/2024 6:38 PM - Electronically signed by Jeanmarie Montoya M.D. MJ: VADIM Report ID: [id number] Reading Location: [id number] Procedure Note Jeanmarie Montoya MD - 03/07/2024 EXAM DESCRIPTION: XR KUB REASON FOR STUDY: ESWL Pre-op. Kidney stones, L side. TECHNIQUE: Single radiographic view of the abdomen. COMPARISON: Prior exam 02/02/2024 FINDINGS: 2 mm calcification projects lateral to the lateral margin of the rightkidney on views of the abdomen and pelvis. Tiny 2 mm calcification projects overthe interpolar region of the left kidney. Moderate stool is seen of the colon with no obstruction. This doesoverlap portions of both kidneys. No acute osseous findings. 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 Trivial of the pubic symphysis. Mildspondylosis lumbar spine. IMPRESSION: 2 mm calcification projects over the interpolar region of the leftkidney. Wall calcification projects lateral to the right kidney as was previously seen. Moderate stool is seen of the colon. This overlaps portions of thekidneys decreases sensitivity. THIS IS AN ELECTRONICALLY VERIFIED FINAL REPORT 03/07/2024 6:38 PM - Electronically signed by Jeanmarie Montoya M.D. MJ: VADIM Report ID: [id number] Reading Location: [place] [address] Stew Magallon MD IMG XR PROCEDURES Fi nal Result * Diagnostic Mammogram Bilateral W Ramon (12/26/2023 9:06 AM CDT) Anatomical Region Laterality Modality Breast Bilateral Mammography 12/26/2023 9:16 AM CDT Impressions 12/26/2023 9:16 AM CDT 1. Unchanged expected mammographic appearance of the right breast following conservation therapy for breast cancer (in 2021). 2. No new suspicious mammographic finding in either breast. Per [facility] guidelines, bilateral diagnostic mammogram in one year is recommended. The patient was notified of these findings and recommendations at the time of the examination. BI-RADS: 2 - Benign. Electronically signed by: Omar Walter M.D. Narrative 12/26/2023 9:16 AM CDT EXAMINATION: DIAGNOSTIC MAMMOGRAM BILATERAL W RAMON ORDERING HEALTHCARE PROVIDER: JUSTIN PENA HISTORY: 83-year-old female with history of left breast cancer in 2021 status post breast conserving therapy. COMPARISON: 10/30/2022, 01/14/2022, 12/26/2021 20 2422, 11/15/2021, 10/19/2021, 10/05/2020, 10/04/2019 TECHNIQUE: CC and MLO views of the bilateral breasts were obtained with digital technique using breast tomosynthesis with C view. Computer aided detection was utilized. FINDINGS: BREAST DENSITY: There are scattered fibroglandular elements in the bilateral breasts. MAMMOGRAM FINDINGS: Postoperative changes of breast conserving therapy in the right breast have not suspiciously changed. There are stable benign calcifications in both breasts. There is an unchanged biopsy marking clip in the left breast. There is no new suspicious finding in either breast on mammogram. 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 FINDINGS: AP LUMBAR SPINE L1-L4: Total BMD is 0.945 g/cm2 T-score is -0.9 LEFT HIP: Total BMD is 0.795 g/cm2 T-score is -1.2 Femoral neck BMD is 0.652 g/cm2 T-score is -1.8 FRAX: 10 year risk for a major osteoporotic fracture is 14 %, 10 year risk for a hip fracture is 3.8 % IMPRESSION: Low Bone Mass. REFERENCE: Bone mineral density: Normal (T-score above or = -1.0) Low bone mass (T-score between -1.0 and -2.5) replaces the previously used term osteopenia Osteoporosis (T-score = or below -2.5) Please see below follow up recommendations. Medical evaluation for secondary causes of low bone mineral density may be appropriate. FRAX is a World Health Organization validated fracture risk assessment tool that calculates a person's 10 year probability of a major osteoporosis related fracture and hip fracture. According to the National Osteoporosis Foundation guidelines, postmenopausal women and men age 50 or older with low bone mass and a 10 year probability of a major osteoporosis related fracture = or greater than 20% or a 10 year probability of a hip fracture = or greater than 3% should be considered for pharmacological treatment for the prevention of osteoporosis. For further information, including treatment recommendations, please refer to the 2019 ISCD Official Positions (http://www.iscd.org) and the NOF's Clinician's Guide to Prevention and Treatment of Osteoporosis (http://www.nof.org/professionals/clinical-guidelines) THIS IS AN ELECTRONICALLY VERIFIED FINAL REPORT 05/15/2023 7:23 PM - Electronically signed by Jeanmarie Green M.D. 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 FINDINGS: AP LUMBAR SPINE L1-L4: Total BMD is 0.945 g/cm2 T-score is -0.9 LEFT HIP: Total BMD is 0.795 g/cm2 T-score is -1.2 Femoral neck BMD is 0.652 g/cm2 T-score is -1.8 FRAX: 10 year risk for a major osteoporotic fracture is 14 %, 10 year risk for ahip fracture is 3.8 % IMPRESSION: Low Bone Mass. REFERENCE: Bone mineral density: Normal (T-score above or = -1.0) Low bone mass (T-score between -1.0 and -2.5) replaces thepreviously used term osteopenia Osteoporosis (T-score = or below -2.5) Please see below follow up recommendations. Medical evaluation forsecondary causes of low bone mineral density may be appropriate. FRAX is a World Health Organization validated fracture risk assessmenttool that calculates a person's 10 year probability of a major osteoporosisrelated fracture and hip fracture. According to the National OsteoporosisFoundation guidelines, postmenopausal women and men age 50 or older with low bonemass and a 10 year probability of a major osteoporosis related fracture = or greater than 20% or a 10 year probability of a hip fracture = or greaterthan 3% should be considered for pharmacological treatment for the preventionof osteoporosis. For further information, including treatment recommendations, please referto the 2019 ISCD Official Positions (http://www.iscd.org) and the NOF's Clinician's Guide to Prevention and Treatment of Osteoporosis (http://www.nof.org/professionals/clinical-guidelines) THIS IS AN ELECTRONICALLY VERIFIED FINAL REPORT 05/15/2023 7:23 PM - Electronically signed by Jeanmarie Green M.D. MF: DALY Report ID: [id number] Reading Location: [place] [address] Mariela Velasquez NP IMG DXA PROCEDURES Final R esult * Stool DNA - Cologuard (02/09/2020 6:30 AM CDT) Stool DNA - Cologuard Negative Not Applicable [employer] (CLIA #:[id number]) Comment: A negative result indicates a low likelihood that a colorectal cancer (CRC) or an advanced adenoma (adenomatous polyps with more advanced pre-malignant features) is present. The chance that a person with a negative Cologuard test has a colorectal cancer is less than 1 in 1500 (negative predictive value >99.9%) or has an advanced adenoma is less than 5.3% (negative predictive value 94.7%). These data are based on a prospective cross-sectional screening study of 10,000 individuals at average risk for colorectal cancer who were screened with both Cologuard and colonoscopy. (Demond Chaves al, N Engl J Med 2014;370(14):4676-8988) The normal value (reference range) for this assay is negative. COLOGUARD RE-SCREENING RECOMMENDATION: Periodic routine colorectal cancer screening is an important part of preventive healthcare for asymptomatic persons at average risk for colorectal cancer. Following a negative Cologuard result, the [place] Cancer Society and U.S. Multi-Society Task Force screening guidelines recommend a Cologuard re-screening interval of 3 years. References: [place] Cancer Society (ACS). Colorectal cancer prevention and early detection. [place], [place]: [place] Cancer Society; [updated 2016 Aug 05]. https://www.cancer.org/cancer/guchm-xxezrm-koziyi/cvfnmxjsh-oorokbarj-cophxuz/ac s-rec ommendations.html. Accessed December 12, 2017; Nelson DK, Efraín DAVILA, Randi BealK, Colorectal Cancer Screening: Recommendations for Physicians and Patients from the U.S. Multi-Society Task Force on Colorectal Cancer Screening, Am J Gastroenterology 2017; 112:0438-4724. TEST TYPE: Composite algorithmic analysis of stool DNA-biomarkers with hemoglobin immunoassay. Quantitative values of individual biomarkers are not reportable and are not associated with individual biomarker result reference ranges. PRECAUTIONS AND LIMITATIONS: Cologuard is intended for colorectal cancer screening of adults of either sex, 45 years or older, who are at average-risk for colorectal cancer (CRC). Cologuard has been approved for use by the U.S. FDA. Cologuard may produce a false negative or false positive result. A negative Cologuard test result does not guarantee the absence of CRC or advanced adenoma (pre-cancer). Patients with a negative Cologuard test result should be advised to continue participating in a colorectal cancer screening program. The screening interval for Cologuard is currently recommended at an interval of every 3 years by the [place] Cancer Society and U.S. Multi-Society Task Force. A false positive result occurs when Cologuard produces a positive result, even though a colonoscopy may not find colorectal cancer or precancerous polyps. The performance of Cologuard has been established in a cross sectional study (i.e., single point in time) of average-risk adults aged 50-84. Cologuard performance in patients ages 45 to 49 years was estimated by sub-group analysis of near-age groups. Cologuard performance data in a 10,000 patient pivotal study using colonoscopy as the reference method can be accessed at the following location: www.[employer].extraTKT/results. Additional description of the Cologuard test process, warnings and precautions can be found at www.cologuardtest.com. Rx only. Stool 02/09/2020 6:30 AM CDT 02/10/2020 12:29 PM CDT us Memo Knox MD LAB BODY FLUIDS AND STO OLS ORDERABLES Final Result [facility] (CLIA #:[id number]) [place] [address] from Last 3 Months or Most Recently Relevant to Health Maintenance Insurance [facility] Advance Directives For more information, please contact: [phone] Documents on File Type Date Recorded Patient Corsetier Expl anation ADVANCE DIRECTIVE 03/17/2023 7:48 PM POWER OF QA ENGINEER-MEDICAL Power of Chemical Dependency Professional 03/14/2023 11:35 AM * Full Code (Latest Code Status on File) Date Activated Date Inactivated Comments 07/01/2017 7:46 PM 07/02/2017 11:07 PM Healthcare Agents on File Name Relationship Healthcare Agent Relationshi p Communication Aimee Cano Daughter Health Care Agent Care Teams Music Theory Teacher Relationship Specialty Start Date End Date Memo Knox MD PCP - General 07/12/16 Justin Pena MD Consulting Physician Hematology and Oncology 02/07/22 Aris Shipley MD [address] [facility] [address] [place] [address] Interventional Cardiology 08/15/23
--- OUTSIDE RECORDS SUMMARY | 2024-05-21 11:08 | XMS_ITS | Clinical Summary ---
Author Organization [facility] Address [address] [place] [address] Phone Care Team Providers Care Marine Engineering Professor Name Role Phone ELOY MOORE MD Unavailable [phone] Reason for Visit and Chief Complaint DEXASCAN Problems Includes: Problems addressed during this encounter and other active Problems All Visits Onset Date Resolved Date Provider Condition S tatus Hypothyroidism 06/21/2013 HALIMA INIGUEZ NP-BC Active Last Documented On 4 9:51AM ; [facility] HYPERLIPIDEMIA NEC/NOS 04/24/2011 NANCY PÉREZ M.D. Active Last Documented On 2 1:24PM ; [facility] HYPERTENSION NOS 04/24/2011 NANCY CHEN M.D. Active Last Documented On 2 1:24PM ; [facility] Osteopenia 04/02/2010 HALIMA INIGUEZ [facility]-BC Act jose Last Documented On 06/23/2015 10:34AM ; [facility] Note: Managed by PCP - Dr. 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 HALIMA INIGUEZ NP-BC A ctive Last Documented On 0 8:49AM ; [facility] Plan of Treatment No Plan of Treatment Recorded Assessments Includes: Assessments from this encounter No Assessments Recorded Medical Equipment - Implanted Devices Includes: Current Devices No Medical Equipment Recorded Medications Includes: Medications discussed during this encounter and other current Medications Current Medications (continue as prescribed) Simvastatin 20 MG OR TABS 04/24/2011 Provider: Diagnosis: Last Documented On 2 1:20PM By RAAD NAIK MA ; [facility] Levothyroxine Sodium 100 MCG OR TABS 04/24/2011 Prov ider: Diagnosis: Last Documented On 2 1:21PM By RAAD NAIK MA ; [facility] amLODIPine Besylate 5 MG OR TABS 04/24/2011 Provider : Diagnosis: Last Documented On 2 1:21PM By RAAD NAKI MA ; [facility] Centrum Silver OR TABS 04/24/2011 Provider: Diagnosis: Last Documented On 2 1:22PM By RAAD NAIK MA ; [facility] Vitamin D 1000 UNIT OR CAPS 04/24/2011 Provider: Diagnosis: Last Documented On 2 1:23PM By RAAD NAIK MA ; [facility] PreserVision/Lutein OR CAPS 04/24/2011 Provider: Diagnosis: 20MG Last Documented On 2 1:23PM By RAAD NAIK MA ; [facility] MSM 1000 MG OR CAPS 04/24/2011 Provider: Diagnosis: Last Documented On 2 1:24PM By RAAD NAIK MA ; [facility] Medications Administered Includes: Administered Medications from this encounter No Administered Medications Recorded Results Includes: Results discussed during this encounter No Results Recorded For Specified Dates History of Present Illness Includes: History of Present Illness from this encounter No History of Present Illness Recorded Social History No Social History Recorded - Smoking Status Unknown Medical History Includes: Medical History addressed during this encounter No Medical History Recorded Family History Includes: Family History addressed during this encounter No Family History Recorded Review of Systems Includes: Review of Systems from this encounter No Review of Systems Recorded Mental Status Includes: Mental Status from this encounter No Mental Status Recorded Functional Status Includes: Functional Status from this encounter No Functional Status Recorded Physical Exam Includes: Physical Exam from this encounter No Physical Exam Recorded Allergies Includes: Active Allergies No Known Allergies Encounters Encounter Provider Location Date Check-In Time Check-Out Time Diagnosis ULI INIGUEZ [facility] SENIOR ASIC DESIGN ENGINEER 07/07/2015 11:28AM 11:50AM Clinical Notes Includes: Clinical Notes from this encounter No Clinical Notes Recorded
--- OUTSIDE RECORDS SUMMARY | 2024-05-21 11:08 | XMS_ITS ---
Care Plan - [facility] Created on: May 21, 2024 SADLERLANIE : 1940 Sex: Female Author Organization [facility] Address [address] [place] [address] Phone Care Team Providers Care Computer Meteorologist Name Role Phone OSCAR AQUINO, ELOY Gonzalez Unavailable [phone]
--- OUTSIDE RECORDS SUMMARY | 2024-05-21 11:08 | XMS_ITS | Clinical Summary ---
Author Organization [facility] Address [address] [place] [address] Phone Care Team Providers Care Import/Export Specialist Name Role Phone OSCAR AQUINO ELOY Gonzalez Unavailable [phone] Reason for Visit and Chief Complaint gynecologic annual exam - The Chief Complaint is: ANNUAL Problems Includes: Problems addressed during this encounter and other active Problems Current Visit Onset Date Resolved Date Provider Conditio n Status Osteopenia 04/02/2010 HALIMA INIGUEZ WHNP-BC Active Last Documented On 06/23/2015 10:34AM ; [facility] Note: Managed by PCP - Dr. 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 Active Last Documented On 2 1:24PM ; [facility] HYPERTENSION NOS 04/24/2011 NANCY CHEN M.D. Active Last Documented On 2 1:24PM ; [facility] Plan of Treatment - OTHER - Last Documented On 04/02/2010 10:55AM ; [facility] Billing Maria, should actually be wwe over age 65, but it will no longer let me adjust that charge. I have an email out to Mariza Rivas for this. thanks! PHY ORDER/COMMENT Please get most recent dexa scan from Dr. Knox. KRIS obtained. - Last Documented On 04/02/2010 10:55AM ; [facility] ? SCREEN MAMMOGRAM NECRadiology/*MAMMOGRAM: Mammogram - Last Documented On 04/02/2010 10:55AM ; [facility] ? SCREEN MAL NEOP-RECTUMIn office procedures/*Clia Waived Labs: *FIT Test (Fecal Occult Test) - Last Documented On 04/02/2010 10:55AM ; [facility] - Follow-up visit 1 year or as needed - Last Documented On 04/02/2010 10:55AM ; [facility] Pending Tests Order Diagnosis Results Due Ordering P rovider In office procedures - *[facility] Waived Labs *FIT Test (Fecal Occult Test) SCREEN MAL NEOP-RECTUM 04/16/10 HALIMA INIGUEZ [facility]- Last Documented On 0 9:08AM ; [facility] Radiology @ other - *MAMMOGRAPHY Mammogram SCREEN MAMMOGRAM NEC 04/16/10 HALIMA WRIGHT [facility]- Last Documented On 0 9:15AM ; [facility] Instructions to patient Instructions for patient : B reast Self Exam discussed Last Documented On 0 8:48AM ; [facility] Lose weight Last Documented On 0 8:49AM ; [facility] Colonoscopy Handout given to patient Last Documented On 0 8:49AM ; [facility] Education and Decision Aids were provided during visit for: Patient Education: Daily rachael cium and vitamin D Last Documented On 0 8:48AM ; [facility] Patient Education: weight be aring exercise Last Documented On 0 8:48AM ; [facility] Assessments Includes: Assessments from this encounter Findings - NORMAL FEMALE EXAM - Last Documented On 04/02/2010 10:55AM ; [facility] - Screening Malig. Neoplasm Rectum - Last Documented On 04/02/2010 10:55AM ; [facility] Instructions Includes: Instructions from this encounter Instructions to patient Instructions for patient : B reast Self Exam discussed Last Documented On 0 8:48AM ; [facility] Lose weight Last Documented On 0 8:49AM ; [facility] Colonoscopy Handout given to patient Last Documented On 0 8:49AM ; [facility] Education and Decision Aids were provided during visit for: Patient Education: Daily rachael cium and vitamin D Last Documented On 0 8:48AM ; [facility] Patient Education: weight be aring exercise Last Documented On 0 8:48AM ; [facility] Medical Equipment - Implanted Devices Includes: Current Devices No Medical Equipment Recorded Medications Includes: Medications discussed during this encounter and other current Medications Current Medications (continue as prescribed) Simvastatin 20 MG OR TABS 04/24/2011 Provider: Diagnosis: Last Documented On 2 1:20PM By RAAD NAIK MA ; [facility] Levothyroxine Sodium 100 MCG OR TABS 04/24/2011 Prov ider: Diagnosis: Last Documented On 2 1:21PM By RAAD NAIK MA ; [facility] amLODIPine Besylate 5 MG OR TABS 04/24/2011 Provider : Diagnosis: Last Documented On 2 1:21PM By RAAD NAIK MA ; [facility] Centrum Silver OR TABS 04/24/2011 Provider: Diagnosis: Last Documented On 2 1:22PM By RAAD NAIK MA ; [facility] CVS Vitamin D 1000 UNIT OR CAPS 04/24/2011 Provider: Diagnosis: Last Documented On 2 1:23PM By RAAD NAIK MA ; [facility] PreserVision/Lutein OR CAPS 04/24/2011 Provider: Diagnosis: 20MG Last Documented On 2 1:23PM By RAAD NAIK MA ; [facility] MSM 1000 MG OR CAPS 04/24/2011 Provider: Diagnosis: Last Documented On 2 1:24PM By RAAD NAIK MA ; [facility] Past Medications on file Fosamax 70 MG OR TABS 10/22/2006 - 2007 Provider : Diagnosis: Last Documented On 05/02/2009 9:07AM By JIM BECERRA ; [facility] Medications Administered Includes: Administered Medications from this encounter No Administered Medications Recorded Vital Signs Includes: Vital Signs from this encounter Vital Name 04/02/2010 09:00A Blood Pressure Sitting R 120/72 BP Cuff Size Large Height (in) 63.75 Weight (lb) 162 Body Mass Index (kg/m2) 28.0 Body Surface Area (m2) 1.8 Last Documented: On 04/02/2010 8:49AM ; [facility] Results Includes: Results discussed during this encounter No Results Recorded For Specified Dates History of Present Illness Includes: History of Present Illness from this encounter HPI LANIE SADLER is a 69 year old female. - No previous history of pelvic pain. Social History Description Last Updated Non-smoker 04/02/2010 Last Documented On 0 10:55AM ; [facility] Not exercising regularly 04/02/2010 Last Documented On 0 10:55AM ; [facility] Not sexually active 04/02/2010 Last Documented On 0 10:55AM ; [facility] Not using alcohol 04/02/2010 Last Documented On 0 10:55AM ; [facility] Not using drugs 04/02/2010 Last Documented On 0 10:55AM ; [facility] Social history changed 04/02/2010 Last Documented On 0 10:55AM ; [facility] Smoking Status Unknown Procedures and Surgical History Includes: Procedures from this encounter Procedures Code Diagnosis Performing Provider Service L ocation Service Date a fecal occult blood test was negative 97173 Last Documented On 0 8:48AM ; [facility] normal history of Pap smear of cervix Last Documented On 0 8:55AM ; [facility] Surgical History Last Updated History of vaginal hysterectomy 1990 fib roids 04/02/2010 Last Documented On 0 10:55AM ; [facility] Recent change to surgical history 2009 Last Documented On 0 10:55AM ; [facility] History of hysterectomy MARC 04/02/2010 Last Documented On 0 10:55AM ; [facility] Medical History Includes: Medical History addressed during this encounter Description Last Updated Vaginal delivery 04/02/2010 Last Documented On 0 10:55AM ; [facility] History of hypothyroidism 04/02/2010 Last Documented On 0 10:55AM ; [facility] History of osteoporosis 04/02/2010 Last Documented On 0 10:55AM ; [facility] No history of cervical dysplasia 010 Last Documented On 0 10:55AM ; [facility] No history of human papilloma virus infe ction 04/02/2010 Last Documented On 0 10:55AM ; [facility] No history of urinary tract infection Last Documented On 0 10:55AM ; [facility] No history of vaginitis 04/02/2010 Last Documented On 0 10:55AM ; [facility] Recent change in medical history 010 Last Documented On 0 10:55AM ; [facility] A colonoscopy was performed 2005 WNL Last Documented On 0 10:55AM ; [facility] Aborta 2 04/02/2010 Last Documented On 0 10:55AM ; [facility] 4 04/02/2010 Last Documented On 0 10:55AM ; [facility] LMP: [id number]/02/2010 Last Documented On 0 10:55AM ; [facility] Para 2 04/02/2010 Last Documented On 0 10:55AM ; [facility] Last mammogram date: 04/14/2009 0 Last Documented On 0 10:55AM ; [facility] Last pap smear date 200804/02/2010 Last Documented On 0 10:55AM ; [facility] Patient recently had a dexa scan 06-10-08 OSTEOPENIA 04/02/2010 Last Documented On 0 10:55AM ; [facility] Result: normal 04/02/2010 Last Documented On 0 10:55AM ; [facility] Result: normal 04/02/2010 Last Documented On 0 10:55AM ; [facility] Family History Includes: Family History addressed during this encounter Description Last Updated Spouse name: Mac 04/02/2010 Last Documented On 0 10:55AM ; [facility] Family history changed 04/02/2010 Last Documented On 0 10:55AM ; [facility] Family history of diabetes mellitus moth er-Late life 04/02/2010 Last Documented On 0 10:55AM ; [facility] Family history of hypercholesterolemia s elf 04/02/2010 Last Documented On 0 10:55AM ; [facility] Family history of hypertension self 03/15 Last Documented On 0 10:55AM ; [facility] Family history of malignant female breas t neoplasm niece @ 38 04/02/2010 Last Documented On 0 10:55AM ; [facility] Heart disease brother 04/02/2010 Last Documented On 0 10:55AM ; [facility] No family history of malignant neoplasm of the large intestine 04/02/2010 Last Documented On 0 10:55AM ; [facility] No family history of malignant neoplasm of the ovary 04/02/2010 Last Documented On 0 10:55AM ; [facility] No family history of uterine cancer 03/15 Last Documented On 0 10:55AM ; [facility] Review of Systems Includes: Review of Systems [...] Location Date Check-In Time Check-Out Time Diagnosis [facility] EXAM HALIMA INIGUEZ [facility] CATALYTIC CASE OPERATOR 0 8:39AM 9:15AM Screening Malig. Neoplasm Rectum,Normal Female Exam Clinical Notes Includes: Clinical Notes from this encounter No Clinical Notes Recorded
--- OUTSIDE RECORDS SUMMARY | 2024-05-21 11:08 | XMS_ITS | Encounter Summary ---
Author Organization [facility] Address [address] [place] [id number] Care Team Providers Care Carpet Loom Fixer Name Role Phone Memo Knox MD Primary Care Provider Amina Kaye NP Unavailable [phone] Kali Espino MD PhD Unavailable [phone] Justin Reid MD Unavailable [phone] Jeffrey Pagdett MD Unavailable [phone] Aris Shipley MD Unavailable Encounter Details Date Type Department Care Team (Late st Contact Info) Description 11/15/2021 Telephone [facility] [address] [place] [id number] Peyton Murphy, RN Social History Tobacco Use Types Packs/Day Years Used Date Smoking Tobacco: Former Smokeless Tobacco: Never Alcohol Use Standard Drinks/Week Comments No 0 (1 standard drink = 0.6 oz pur e alcohol) PHQ-2 Answer Date Recorded PHQ-2 Total Score (If total score is 3 or more points, staff should administer the PHQ-9) 0 11/07/2021 Comments No Sex and Gender Information Value Date Recorded Sex Assigned at Not on file Legal Sex Female 11:53 PM RETORT FORKER Gender Identity Not on file Sexual Orientation Not on file documented as of this encounter Plan of Treatment Not on file documented as of this encounter Visit Diagnoses Not on filedocumented in this encounter Additional Health Concerns Infection Onset Date Last Indicated Resolved Time COVID: Suspected 06/07/2023 06/07/2023 06/07/2023 2:54 PM RETORT FORKER Influenza, adult 06/07/2023 06/07/2023 06/14/2023 3:05 AM RETORT FORKER documented as of this encounter Care Teams Carpet Loom Fixer Relationship Specialty Start Date End Date Memo Knox MD PCP - General 07/12/16 Amina Kaye, FORREST Nurse Practitioner Nurse Practitioner 07/02/17 4 Kali Espino MD PhD [address] [place] [id number] Radiation Oncologist Radiation Oncology 02/07/2201/31 Justin Reid MD [address] [place] [id number] Consulting Physician Hematology and Oncology 02/07/22 Jeffrey Padgett MD [address] [place] [address] Surgeon General Surgery 02/07/22 02/01/24 Aris Shipley MD [address] [address] Interventional Cardiology 08/15/23 documented as of this encounter
--- OUTSIDE RECORDS SUMMARY | 2024-05-21 11:08 | XMS_ITS ---
Author Organization [facility] Address [address] [place] [address] Phone Care Team Providers Care Flake Miller Helper Name Role Phone ELOY MOORE MD Unavailable [phone] Problems Includes: Active, inactive, and resolved Problems All Visits Onset Date Resolved Date Provider Condition S tatus Hypothyroidism 06/21/2013 HALIMA INIGUEZ WHNP-BC Active Last Documented On 4 9:51AM ; [facility] HYPERLIPIDEMIA NEC/NOS 04/24/2011 NANCY PÉREZ M.D. Active Last Documented On 2 1:24PM ; [facility] HYPERTENSION NOS 04/24/2011 NANCY CHEN M.D. Active Last Documented On 2 1:24PM ; [facility] Osteopenia 04/02/2010 HALIMA INIGUEZ WHNP-BC Act jose Last Documented On 06/23/2015 10:34AM ; [facility] Note: Managed by PCP - Dr. 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 HALIMA INIGUEZ WHNP-BC A ctive Last Documented On 0 8:49AM ; [facility] Plan of Treatment Findings Encounter Date Ordered Clinical summary pro vided to patient ANNUAL ADDICTION MEDICINE PHYSICIAN EXAM with HALIMA INIGUEZ WHNP-BC 06/23/2015 Last Documented On 6 10:34AM ; [facility] Ordered follow-up visit 1 ye ar or as needed ANNUAL ADDICTION MEDICINE PHYSICIAN EXAM with HALIMA INIGUEZ WHNP-BC 06/23/2015 Last Documented On 6 10:34AM ; [facility] Ordered Clinical summary pro vided to patient NEW DIGITAL PHOTOGRAPHIC PRINTER EXAM with HALIMA INIGUEZ WHNP-BC 06/21/2013 Last Documented On 4 9:52AM ; [facility] Ordered follow-up visit 1 ye ar or as needed NEW DIGITAL PHOTOGRAPHIC PRINTER EXAM with HALIMA INIGUEZ [facility] 06/21/2013 Last Documented On 4 9:52AM ; [facility] Ordered follow-up visit 1 ye ar or as needed DIGITAL PHOTOGRAPHIC PRINTER EXAM with HALIMA INIGUEZ [facility] 04/02/2010 Last Documented On 0 10:55AM ; [facility] Instructions to patient Instructions for patient : B reast Self Exam discussed Last Documented On 6 10:05AM ; [facility] Colonoscopy Handout given to patient Last Documented On 6 10:05AM ; [facility] Instructions for patient : B reast Self Exam discussed Last Documented On 4 9:35AM ; [facility] Lose weight Last Documented On 4 9:35AM ; [facility] Colonoscopy Handout given to patient Last Documented On 4 9:35AM ; [facility] Instructions for patient : B reast Self Exam discussed. Reviewed monthly self breast examination and technique Last Documented On 2 1:25PM ; [facility] Recommend diet and exercise at least 30 min three times per week Last Documented On 2 1:25PM ; [facility] Discussed Gardasil vaccinati on and recommend vaccination for HPV prevention. Handout given. Patient undertsands sexual transmission of high-risk HPV and association with abnormal pap smear and cervical cancer. recommend to decrease high risk behaviors such as: number of sexual partners, smoking, and contraceptive use Last Documented On 2 1:25PM ; [facility] Recommend preventative vacci nation including but not limited to influenza/flu vaccine, DTP, Rubella, Hepatitis B vaccination series Last Documented On 2 1:25PM ; [facility] Recommend annual pap smear e xamination or every three year if high risk hpv negative and 3 consecutive normal pap examination during preceding three years Last Documented On 2 1:25PM ; [facility] Recommend TSH, fasting gluco se, fasting lipid panel, CBC, BMP Last Documented On 2 1:25PM ; [facility] Recommend Calcium supplement ation and weight bearing exercise Last Documented On 2 1:25PM ; [facility] Recommended Bone Density Last Documented On 2 1:25PM ; [facility] Recommended Colonoscopy Pt r eferred to Gastroenetrologist. Pt understands that recommendation for colonoscopy is every 10 years after the age of 50 or age of 40 if first degree relative with history of colon cancer. Patient understands that failure to follow recommendation can lead to delayed diagnosis of colon cancer and patient accepts all responsibility regarding scheduling and follow up with senior developer Last Documented On 2 1:25PM ; [facility] Instructions for patient : B reast Self Exam discussed Last Documented On 0 8:48AM ; [facility] Lose weight Last Documented On 0 8:49AM ; [facility] Colonoscopy Handout given to patient Last Documented On 0 8:49AM ; [facility] Education and Decision Aids were provided during visit for: Patient Education: Daily rachael cium and vitamin D Last Documented On 6 10:05AM ; [facility] Patient Education: weight be aring exercise Last Documented On 6 10:05AM ; [facility] Patient Education: Daily rachael cium and vitamin D Last Documented On 4 9:35AM ; [facility] Patient Education: weight be aring exercise Last Documented On 4 9:35AM ; [facility] Patient Education: Daily rachael cium and vitamin D Last Documented On 0 8:48AM ; [facility] Patient Education: weight be aring exercise Last Documented On 0 8:48AM ; [facility] Assessments Includes: Assessments for all patient encounters Findings Encounter Date NORMAL FEMALE EXAM ANNUAL ADDICTION MEDICINE PHYSICIAN EXAM with HALIMA NIIGUEZ [facility] 06/23/2015 Last Documented On 6 10:34AM ; [facility] Screening Malig. Neoplasm Rectum ANNUAL ADDICTION MEDICINE PHYSICIAN EXAM with HALIMA INIGUEZ [facility] 06/23/2015 Last Documented On 6 10:34AM ; [facility] NORMAL FEMALE EXAM NEW DIGITAL PHOTOGRAPHIC PRINTER EXAM with HALIMA WRIGHT [facility] 06/21/2013 Last Documented On 4 9:52AM ; [facility] Screening Malig. Neoplasm Rectum NEW DIGITAL PHOTOGRAPHIC PRINTER EXAM wi th HALIMA A GEETHA [facility] 06/21/2013 Last Documented On 4 9:52AM ; [facility] Asymptomatic postmenopausal status NEW G YN EXAM with NANCY CHEN M.D. 04/24/2011 Last Documented On 2 1:37PM ; [facility] MAMMOGRAM SCREENING NEW DIGITAL PHOTOGRAPHIC PRINTER EXAM with NANCY CHEN M.D. 04/24/2011 Last Documented On 2 1:37PM ; [facility] NORMAL FEMALE EXAM NEW DIGITAL PHOTOGRAPHIC PRINTER EXAM with NANCY CARLTON M.D. 04/24/2011 Last Documented On 2 1:37PM ; [facility] Screening Malig. Neoplasm Rectum NEW DIGITAL PHOTOGRAPHIC PRINTER EXAM wi th NANCY CHEN M.D. 04/24/2011 Last Documented On 2 1:37PM ; [facility] NORMAL FEMALE EXAM DIGITAL PHOTOGRAPHIC PRINTER EXAM with HALIMA Townsend [facility] 04/02/2010 Last Documented On 0 10:55AM ; [facility] Screening Malig. Neoplasm Rectum DIGITAL PHOTOGRAPHIC PRINTER EXAM with Mariusz INIGUEZ [facility] 04/02/2010 Last Documented On 0 10:55AM ; [facility] Instructions Includes: Instructions for all patient encounters Instructions to patient Instructions for patient : B reast Self Exam discussed Last Documented On 6 10:05AM ; [facility] Colonoscopy Handout given to patient Last Documented On 6 10:05AM ; [facility] Instructions for patient : B reast Self Exam discussed Last Documented On 4 9:35AM ; [facility] Lose weight Last Documented On 4 9:35AM ; [facility] Colonoscopy Handout given to patient Last Documented On 4 9:35AM ; [facility] Instructions for patient : B reast Self Exam discussed. Reviewed monthly self breast examination and technique Last Documented On 2 1:25PM ; [facility] Recommend diet and exercise at least 30 min three times per week Last Documented On 2 1:25PM ; [facility] Discussed Gardasil vaccinati on and recommend vaccination for HPV prevention. Handout given. Patient undertsands sexual transmission of high-risk HPV and association with abnormal pap smear and cervical cancer. recommend to decrease high risk behaviors such as: number of sexual partners, smoking, and contraceptive use Last Documented On 2 1:25PM ; [facility] Recommend preventative vacci nation including but not limited to influenza/flu vaccine, DTP, Rubella, Hepatitis B vaccination series Last Documented On 2 1:25PM ; [facility] Recommend annual pap smear e xamination or every three year if high risk hpv negative and 3 consecutive normal pap examination during preceding three years Last Documented On 2 1:25PM ; [facility] Recommend TSH, fasting gluco se, fasting lipid panel, CBC, BMP Last Documented On 2 1:25PM ; [facility] Recommend Calcium supplement ation and weight bearing exercise Last Documented On 2 1:25PM ; [facility] Recommended Bone Density Last Documented On 2 1:25PM ; [facility] Recommended Colonoscopy Pt r eferred to Gastroenetrologist. Pt understands that recommendation for colonoscopy is every 10 years after the age of 50 or age of 40 if first degree relative with history of colon cancer. Patient understands that failure to follow recommendation can lead to delayed diagnosis of colon cancer and patient accepts all responsibility regarding scheduling and follow up with senior developer Last Documented On 2 1:25PM ; [facility] Instructions for patient : B reast Self Exam discussed Last Documented On 0 8:48AM ; [facility] Lose weight Last Documented On 0 8:49AM ; [facility] Colonoscopy Handout given to patient Last Documented On 0 8:49AM ; [facility] Education and Decision Aids were provided during visit for: Patient Education: Daily rachael cium and vitamin D Last Documented On 6 10:05AM ; [facility] Patient Education: weight be aring exercise Last Documented On 6 10:05AM ; [facility] Patient Education: Daily rachael cium and vitamin D Last Documented On 4 9:35AM ; [facility] Patient Education: weight be aring exercise Last Documented On 4 9:35AM ; [facility] Patient Education: Daily rachael cium and vitamin D Last Documented On 0 8:48AM ; [facility] Patient Education: weight be aring exercise Last Documented On 0 8:48AM ; [facility] Medical Equipment - Implanted Devices Includes: Current and historical Devices No Medical Equipment Recorded Medications Includes: Current and historical Medications Current Medications (continue as prescribed) Simvastatin 20 MG OR TABS 04/24/2011 Provider: Diagnosis: Last Documented On 2 1:20PM By RAAD NAIK MA ; [facility] Levothyroxine Sodium 100 MCG OR TABS 04/24/2011 Prov ider: Diagnosis: Last Documented On 2 1:21PM By RAAD NAIK MA ; [facility] amLODIPine Besylate 5 MG OR TABS 04/24/2011 Provider : Diagnosis: Last Documented On 2 1:21PM By RAAD NAIK MA ; [facility] Centrum Silver OR TABS 04/24/2011 Provider: Diagnosis: Last Documented On 2 1:22PM By RAAD NAIK MA ; [facility] CVS Vitamin D 1000 UNIT OR CAPS 04/24/2011 Provider: Diagnosis: Last Documented On 2 1:23PM By RAAD NAIK MA ; [facility] PreserVision/Lutein OR CAPS 04/24/2011 Provider: Diagnosis: 20MG Last Documented On 2 1:23PM By RAAD NAIK MA ; [facility] MSM 1000 MG OR CAPS 04/24/2011 Provider: Diagnosis: Last Documented On 2 1:24PM By RAAD NAIK MA ; [facility] Past Medications on file Aspirin Low Dose 81 MG OR TABS 04/24/2011 - 06/23/2015 Provider: Diagnosis: Last Documented On 06/23/2015 10:22AM By KRISTEL HALL MA ; [facility] amLODIPine Besylate 5 MG OR TABS 04/02/2010 - 04/24/19 12 Provider: Diagnosis: Last Documented On 2 1:21PM By RAAD NAIK MA ; [facility] Simvastatin 20 MG OR TABS 04/02/2010 - 04/24/2011 Prov ider: Diagnosis: Last Documented On 2 1:20PM By RAAD NAIK MA ; [facility] Vitamin D (Ergocalciferol) 1 .25 MG (92865 UT) OR CAPS 04/02/2010 - 04/24/2011 Provider: Diagnosis: ONCE WEEKLY Last Documented On 2 1:21PM By RAAD NAIK MA ; [facility] Levothroid 100 MCG OR TABS 04/02/2010 - 04/24/2011 Pro vider: Diagnosis: Last Documented On 2 1:21PM By RAAD NAIK MA ; [facility] MSM 1000 MG OR TABS 04/02/2010 - 04/24/2011 Provider: Diagnosis: 4X DAILY Last Documented On 2 1:22PM By RAAD NAIK MA ; [facility] Fosamax 70 MG OR TABS 10/22/2006 - 2007 Provider : Diagnosis: Last Documented On 05/02/2009 9:07AM By JIM BECERRA ; [facility] Fosamax 70 MG OR TABS 01/09/2005 - 04/24/2011 Provider : Diagnosis: Last Documented On 2 1:22PM By RAAD NAIK MA ; [facility] Medications Administered Includes: Administered Medications in patient's chart No Administered Medications Recorded Results Includes: Results from 05/21/2023 through 05/21/2024 No Results Recorded For Specified Dates History of Present Illness History of Present Illness not supported for this document type No History of Present Illness Recorded Social History Description Last Updated In monogamous relationship 06/23/2015 Last Documented On 6 10:34AM ; [facility] Non-smoker 06/23/2015 Last Documented On 6 10:34AM ; [facility] Not exercising regularly 06/23/2015 Last Documented On 6 10:34AM ; [facility] Not sexually active 06/23/2015 Last Documented On 6 10:34AM ; [facility] Not using alcohol 06/23/2015 Last Documented On 6 10:34AM ; [facility] Not using drugs 06/23/2015 Last Documented On 6 10:34AM ; [facility] Sexually active with 1 partners in the l ast year 06/23/2015 Last Documented On 6 10:34AM ; [facility] Smoking status : Never smoker 06/23/2015 Last Documented On 6 10:34AM ; [facility] Social history unchanged 06/23/2015 Last Documented On 6 10:34AM ; [facility] Procedures and Surgical History Surgical History Last Updated History of hysterectomy MARC 1990-fibroid s 06/23/2015 Last Documented On 6 10:34AM ; [facility] History of vaginal hysterectomy 1990 fib roids 06/23/2015 Last Documented On 6 10:34AM ; [facility] Recent change to surgical history 2015 Last Documented On 6 10:34AM ; [facility] Medical History Includes: Medical History in patient's chart Description Last Updated History of screening mammogram was perfo rmed 05/23/2015 06/23/2015 Last Documented On 6 10:34AM ; [facility] Not sexually active 06/23/2015 Last Documented On 6 10:34AM ; [facility] HYSTERECTOMY 06/23/2015 Last Documented On 6 10:34AM ; [facility] Aborta 2 06/23/2015 Last Documented On 6 10:34AM ; [facility] 4 06/23/2015 Last Documented On 6 10:34AM ; [facility] History of a DEXA of the lat eral lumbar spine was performed [address] Moore 06/23/2015 Last Documented On 6 10:34AM ; [facility] History of benign essential hypertension 06/23/2015 Last Documented On 6 10:34AM ; [facility] History of complete colonoscopy [address] [place] office wnl 06/23/2015 Last Documented On 6 10:34AM ; [facility] History of hyperlipidemia 06/23/2015 Last Documented On 6 10:34AM ; [facility] History of hypothyroidism 06/23/2015 Last Documented On 6 10:34AM ; [facility] History of osteoporosis 06/23/2015 Last Documented On 6 10:34AM ; [facility] History of Pap smear done 2005 6 Last Documented On 6 10:34AM ; [facility] History of thyroid disorder 06/23/2015 Last Documented On 6 10:34AM ; [facility] LMP: 1991 06/23/2015 Last Documented On 6 10:34AM ; [facility] No recent change in medical history 06/12 Last Documented On 6 10:34AM ; [facility] Para 2 06/23/2015 Last Documented On 6 10:34AM ; [facility] Result: normal 06/23/2015 Last Documented On 6 10:34AM ; [facility] Result: normal 06/23/2015 Last Documented On 6 10:34AM ; [facility] Vaginal delivery 06/23/2015 Last Documented On 6 10:34AM ; [facility] A colonoscopy was performed 2006 WNL Last Documented On 0 10:55AM ; [facility] Patient recently had a dexa scan 06-10-08 OSTEOPENIA 04/02/2010 Last Documented On 0 10:55AM ; [facility] Family History Includes: Family History in patient's chart Description Last Updated Family history of hypertension self 06/12 Last Documented On 6 10:34AM ; [facility] Family history of malignant female breas t neoplasm Niece 06/23/2015 Last Documented On 6 10:34AM ; [facility] Family history unchanged 06/21/2013 Last Documented On 4 9:52AM ; [facility] First child named MARLEE 04/24/2011 Last Documented On 2 1:37PM ; [facility] Second child named EUNICE 04/24/2011 Last Documented On 2 1:37PM ; [facility] Spouse name: Mac 04/02/2010 Last Documented On 0 10:55AM ; [facility] Family history of diabetes mellitus moth er-Late life 04/02/2010 Last Documented On 0 10:55AM ; [facility] Family history of hypercholesterolemia s elf 04/02/2010 Last Documented On 0 10:55AM ; [facility] Heart disease brother 04/02/2010 Last Documented On 0 10:55AM ; [facility] Family history of Cancer 05/02/2009 Last Documented On 0 9:11AM ; [facility] Family medical history of high blood pre ssure 05/02/2009 Last Documented On 0 9:11AM ; [facility] Review of Systems Review of Systems not supported for this document type No Review of Systems Recorded Mental Status No Mental Status Recorded Functional Status No Functional Status Recorded Physical Exam Physical Exam not supported for this document type No Physical Exam Recorded Immunizations Includes: Immunizations in patient's chart Vaccine Dose # Date Site Reaction(s) Status Source DTaP 1 Complete (Reported) Keiry ent Last Documented On 2 1:28PM ; [facility] Td 1 Complete (Reported) Keiry ent Last Documented On 2 1:28PM ; [facility] Allergies Includes: Active, inactive, and resolved Allergies No Known Allergies Clinical Notes Includes: Signed Clinical Notes starting from 05/03/2022 No Clinical Notes Recorded
--- OUTSIDE RECORDS SUMMARY | 2024-05-21 11:08 | XMS_ITS | Clinical Summary ---
Author Organization [facility] Address [address] [place] [address] Phone Care Team Providers Care Envelope Fold Operator Name Role Phone ELOY MOORE MD Unavailable [phone] Reason for Visit and Chief Complaint gynecologic annual exam - The Chief Complaint is: [employer] Problems Includes: Problems addressed during this encounter and other active Problems Current Visit Onset Date Resolved Date Provider Conditio n Status HYPERLIPIDEMIA NEC/NOS 04/24/2011 KYLE CHEN M.D. Active Last Documented On 2 1:24PM ; [facility] HYPERTENSION NOS 04/24/2011 NANCY CHEN M.D. Active Last Documented On 2 1:24PM ; [facility] Past Visits Onset Date Resolved Date Provider Condition Status Hypothyroidism 06/21/2013 HALIMA INIGUEZ WHNP-BC Active Last Documented On 4 9:51AM ; [facility] Osteopenia 04/02/2010 HALIMA INIGUEZ WHNP-BC Act jose Last Documented On 06/23/2015 10:34AM ; [facility] Note: Managed by PCP - Dr. 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 SCREEN MAMMOGRAM NECRadiology/*MAMMOGRAPHY: Mammography - Last Documented On 04/24/2011 1:37PM ; [facility] ? SCREEN MAL NEOP-RECTUMIn office procedures/*Clia Waived Labs: *FIT Test (Fecal Occult Test) - Last Documented On 04/24/2011 1:37PM ; [facility] Pending Tests Order Diagnosis Results Due Ordering Melissa elmore Radiology @ other - *MAMMOGRAPHY Mammography SCREEN MAMMOGRAM NEC 05/08/11 NANCY CARLTON M.D. Last Documented On 2 1:59PM ; [facility] In office procedures - *Clia Waived Labs *FIT Test (Fecal Occult Test) SCREEN MAL NEOP-RECTUM 05/08/11 NANCY CHEN M.D. Last Documented On 2 1:37PM ; [facility] Instructions to patient Instructions for patient : B reast Self Exam discussed. Reviewed monthly self breast examination and technique Last Documented On 2 1:25PM ; [facility] Recommend diet and exercise at least 30 min three times per week Last Documented On 2 1:25PM ; [facility] Discussed Gardasil vaccinati on and recommend vaccination for HPV prevention. Handout given. Patient undertsands sexual transmission of high-risk HPV and association with abnormal pap smear and cervical cancer. recommend to decrease high risk behaviors such as: number of sexual partners, smoking, and contraceptive use Last Documented On 2 1:25PM ; [facility] Recommend preventative vacci nation including but not limited to influenza/flu vaccine, DTP, Rubella, Hepatitis B vaccination series Last Documented On 2 1:25PM ; [facility] Recommend annual pap smear e xamination or every three year if high risk hpv negative and 3 consecutive normal pap examination during preceding three years Last Documented On 2 1:25PM ; [facility] Recommend TSH, fasting gluco se, fasting lipid panel, CBC, BMP Last Documented On 2 1:25PM ; [facility] Recommend Calcium supplement ation and weight bearing exercise Last Documented On 2 1:25PM ; [facility] Recommended Bone Density Last Documented On 2 1:25PM ; [facility] Recommended Colonoscopy Pt r eferred to Gastroenetrologist. Pt understands that recommendation for colonoscopy is every 10 years after the age of 50 or age of 40 if first degree relative with history of colon cancer. Patient understands that failure to follow recommendation can lead to delayed diagnosis of colon cancer and patient accepts all responsibility regarding scheduling and follow up with rigger Last Documented On 2 1:25PM ; [facility] Assessments Includes: Assessments from this encounter Findings - MAMMOGRAM SCREENING - Last Documented On 04/24/2011 1:37PM ; [facility] - NORMAL FEMALE EXAM - Last Documented On 04/24/2011 1:37PM ; [facility] - Asymptomatic postmenopausal status - Last Documented On 04/24/2011 1:37PM ; [facility] - Screening Malig. Neoplasm Rectum - Last Documented On 04/24/2011 1:37PM ; [facility] Instructions Includes: Instructions from this encounter Instructions to patient Instructions for patient : B reast Self Exam discussed. Reviewed monthly self breast examination and technique Last Documented On 2 1:25PM ; [facility] Recommend diet and exercise at least 30 min three times per week Last Documented On 2 1:25PM ; [facility] Discussed Gardasil vaccinati on and recommend vaccination for HPV prevention. Handout given. Patient undertsands sexual transmission of high-risk HPV and association with abnormal pap smear and cervical cancer. recommend to decrease high risk behaviors such as: number of sexual partners, smoking, and contraceptive use Last Documented On 2 1:25PM ; [facility] Recommend preventative vacci nation including but not limited to influenza/flu vaccine, DTP, Rubella, Hepatitis B vaccination series Last Documented On 2 1:25PM ; [facility] Recommend annual pap smear e xamination or every three year if high risk hpv negative and 3 consecutive normal pap examination during preceding three years Last Documented On 2 1:25PM ; [facility] Recommend TSH, fasting gluco se, fasting lipid panel, CBC, BMP Last Documented On 2 1:25PM ; [facility] Recommend Calcium supplement ation and weight bearing exercise Last Documented On 2 1:25PM ; [facility] Recommended Bone Density Last Documented On 2 1:25PM ; [facility] Recommended Colonoscopy Pt r eferred to Gastroenetrologist. Pt understands that recommendation for colonoscopy is every 10 years after the age of 50 or age of 40 if first degree relative with history of colon cancer. Patient understands that failure to follow recommendation can lead to delayed diagnosis of colon cancer and patient accepts all responsibility regarding scheduling and follow up with rigger Last Documented On 2 1:25PM ; [facility] Medical Equipment - Implanted Devices Includes: Current Devices No Medical Equipment Recorded Medications Includes: Medications discussed during this encounter and other current Medications Discontinued / Stopped on this date on 04/02/2010 amLODIPine Besylate 5 MG OR TABS Provider : Diagnosis: Last Documented On 2 1:21PM By RAAD NAIK MA ; [facility] Simvastatin 20 MG OR TABS Provider: Diagnosis: Last Documented On 2 1:20PM By RAAD NAIK MA ; [facility] Vitamin D (Ergocalciferol) 1.25 MG (59912 UT) OR CAPS Provider: Diagnosis: Last Documented On 2 1:21PM By RAAD NAIK MA ; [facility] Levothroid 100 MCG OR TABS Provider: Diagnosis: Last Documented On 2 1:21PM By RAAD NAIK MA ; [facility] MSM 1000 MG OR TABS Provider: Diagnosis: Last Documented On 2 1:22PM By RAAD NAIK MA ; [facility] Fosamax 70 MG OR TABS Provider: Diagnosis: Last Documented On 2 1:22PM By RAAD NAIK MA ; [facility] Current Medications (continue as prescribed) Simvastatin 20 MG OR TABS 04/24/2011 Provider: Diagnosis: Last Documented On 2 1:20PM By RAAD NAIK MA ; [facility] Levothyroxine Sodium 100 MCG OR TABS 04/24/2011 Prov ider: Diagnosis: Last Documented On 2 1:21PM By RAAD NAIK MA ; [facility] amLODIPine Besylate 5 MG OR TABS 04/24/2011 Provider : Diagnosis: Last Documented On 2 1:21PM By RAAD NAIK MA ; [facility] Centrum Silver OR TABS 04/24/2011 Provider: Diagnosis: Last Documented On 2 1:22PM By RAAD NAIK MA ; [facility] CVS Vitamin D 1000 UNIT OR CAPS 04/24/2011 Provider: Diagnosis: Last Documented On 2 1:23PM By RAAD NAIK MA ; [facility] PreserVision/Lutein OR CAPS 04/24/2011 Provider: Diagnosis: 20MG Last Documented On 2 1:23PM By RAAD NAIK MA ; [facility] MSM 1000 MG OR CAPS 04/24/2011 Provider: Diagnosis: Last Documented On 2 1:24PM By RAAD NAIK MA ; [facility] Past Medications on file Fosamax 70 MG OR TABS 10/22/2006 - 2007 Provider : Diagnosis: Last Documented On 05/02/2009 9:07AM By JIM BECERRA ; [facility] Medications Administered Includes: Administered Medications from this encounter No Administered Medications Recorded Vital Signs Includes: Vital Signs from this encounter Vital Name 04/24/2011 01:30P Blood Pressure Sitting (mmHg) 152/78 Weight (lb) 161 Last Documented: On 04/24/2011 1:13PM ; [facility] Results Includes: Results discussed during this encounter No Results Recorded For Specified Dates History of Present Illness Includes: History of Present Illness from this encounter HPI LANIE SADLER is a 70 year old female. - No complaints. - Menopause has occurred. Social History Description Last Updated Non-smoker 06/23/2015 Last Documented On 2 1:11PM ; [facility] Not exercising regularly 06/23/2015 Last Documented On 2 1:11PM ; [facility] Not using alcohol 06/23/2015 Last Documented On 2 1:11PM ; [facility] Not using drugs 06/23/2015 Last Documented On 2 1:11PM ; [facility] Social history changed 06/23/2015 Last Documented On 2 1:11PM ; [facility] Not sexually active 04/24/2011 Last Documented On 2 1:37PM ; [facility] Smoking Status Unknown Procedures and Surgical History Includes: Procedures from this encounter Procedures Code Diagnosis Performing Provider Service L ocation Service Date a fecal occult blood test was negative 99178 Last Documented On 2 1:25PM ; [facility] Surgical History Last Updated History of vaginal hysterectomy 1990 fib roids 06/23/2015 Last Documented On 2 1:11PM ; [facility] Recent change to surgical history 2015 Last Documented On 2 1:11PM ; [facility] No Bilateral salpingo-oophorectomy 04/24 Last Documented On 2 1:37PM ; [facility] No Breast Biopsy 04/24/2011 Last Documented On 2 1:37PM ; [facility] No Dilation + Curettage 04/24/2011 Last Documented On 2 1:37PM ; [facility] No Ectopic surgery 04/24/2011 Last Documented On 2 1:37PM ; [facility] No Endometrial Ablation 04/24/2011 Last Documented On 2 1:37PM ; [facility] No history of appendectomy 04/24/2011 Last Documented On 2 1:37PM ; [facility] No history of cholecystectomy 04/24/2011 Last Documented On 2 1:37PM ; [facility] No history of Loop electrode excision of cervix (LEEP) 04/24/2011 Last Documented On 2 1:37PM ; [facility] No history of total abdominal hysterecto my 04/24/2011 Last Documented On 2 1:37PM ; [facility] No history of tubal ligation 04/24/2011 Last Documented On 2 1:37PM ; [facility] No Laparoscopic Hysterectomy 04/24/2011 Last Documented On 2 1:37PM ; [facility] No Ovarian Cystectomy 04/24/2011 Last Documented On 2 1:37PM ; [facility] No Tonsillectomy 04/24/2011 Last Documented On 2 1:37PM ; [facility] History of hysterectomy MARC 1990 012 Last Documented On 2 1:37PM ; [facility] Medical History Includes: Medical History addressed during this encounter Description Last Updated HYSTERECTOMY 06/23/2015 Last Documented On 2 1:11PM ; [facility] Aborta 2 06/23/2015 Last Documented On 2 1:11PM ; [facility] 4 06/23/2015 Last Documented On 2 1:11PM ; [facility] History of hypothyroidism 06/23/2015 Last Documented On 2 1:11PM ; [facility] History of osteoporosis 06/23/2015 Last Documented On 2 1:11PM ; [facility] LMP: 1991 06/23/2015 Last Documented On 2 1:11PM ; [facility] Para 2 06/23/2015 Last Documented On 2 1:11PM ; [facility] Recent change in medical history 016 Last Documented On 2 1:11PM ; [facility] Result: normal 06/23/2015 Last Documented On 2 1:11PM ; [facility] Vaginal delivery 06/23/2015 Last Documented On 2 1:11PM ; [facility] History of benign essential hypertension 04/24/2011 Last Documented On 2 1:37PM ; [facility] History of hyperlipidemia 04/24/2011 Last Documented On 2 1:37PM ; [facility] History of thyroid disorder 04/24/2011 Last Documented On 2 1:37PM ; [facility] Last mammogram date: 05/01/2011 2 Last Documented On 2 1:37PM ; [facility] Last pap smear date 200904/24/2011 Last Documented On 2 1:37PM ; [facility] No history of cervical dysplasia 010 Last Documented On 2 1:11PM ; [facility] No history of human papilloma virus infe ction 04/02/2010 Last Documented On 2 1:11PM ; [facility] No history of urinary tract infection Last Documented On 2 1:11PM ; [facility] No history of vaginitis 04/02/2010 Last Documented On 2 1:11PM ; [facility] A colonoscopy was performed 2005 WNL Last Documented On 2 1:11PM ; [facility] Patient recently had a dexa scan 06-10-08 OSTEOPENIA 04/02/2010 Last Documented On 2 1:11PM ; [facility] Family History Includes: Family History addressed during this encounter Description Last Updated Family history of hypertension self 06/12 Last Documented On 2 1:11PM ; [facility] Family history of malignant female breas t neoplasm niece @ 38 06/23/2015 Last Documented On 2 1:11PM ; [facility] Family history changed 06/21/2013 Last Documented On 2 1:11PM ; [facility] First child named MARLEE 04/24/2011 Last Documented On 2 1:37PM ; [facility] Second child named EUNICE 04/24/2011 Last Documented On 2 1:37PM ; [facility] Spouse name: Mac 04/02/2010 Last Documented On 2 1:11PM ; [facility] Family history of diabetes mellitus moth er-Late life 04/02/2010 Last Documented On 2 1:11PM ; [facility] Family history of hypercholesterolemia s elf 04/02/2010 Last Documented On 2 1:11PM ; [facility] Heart disease brother 04/02/2010 Last Documented On 2 1:11PM ; [facility] No family history of malignant neoplasm of the large intestine 04/02/2010 Last Documented On 2 1:11PM ; [facility] No family history of malignant neoplasm of the ovary 04/02/2010 Last Documented On 2 1:11PM ; [facility] No family history of uterine cancer 03/15 Last Documented On 2 1:11PM ; [facility] Family history of Cancer 05/02/2009 Last Documented On 2 1:11PM ; [facility] Family medical history of high blood pre ssure 05/02/2009 Last Documented On 2 1:11PM ; [facility] Review of Systems Includes: Review of Systems from this encounter Systemic: Not tiring easily. No fever, no chills, and no post coital bleeding. No night sweats. Head: No headache. Neck: No neck pain and no swollen glands in the neck. Cardiovascular: No chest pain or discomfort, no palpitations, and no varicosities. Pulmonary: No dyspnea, no cough, and no wheezing. Gastrointestinal: No heartburn and no indigestion. No nausea, no vomiting, no abdominal pain, no diarrhea, and no constipation. Genitourinary: No change in urinary frequency and no incomplete emptying of bladder. No urinary loss of control, no dysuria, no pain during intercourse, no vaginal dryness, and no menorrhagia. No dysmenorrhea. No nonmenstrual bleeding. Endocrine: No polydipsia, no temperature intolerance, no hot flashes, libido has not changed, and no loss of hair from the head. Hematologic: No blood clotting problems. Musculoskeletal: No back pain and no localized joint pain. Psychological: No depression and a desire to continue living. Skin: No pruritus and no rash. No boils. Allergic and Immunologic: No hay fever. Mental Status Includes: Mental Status from this encounter Description Oriented to time, place, and person A desire to continue living Functional Status Includes: Functional Status from this encounter No Functional Status Recorded Physical Exam Includes: Physical Exam from this encounter Immunizations Includes: Immunizations addressed during this encounter Vaccine Dose # Date Site Reaction(s) Status Source DTaP 1 Complete (Reported) Keiry ent Last Documented On 2 1:28PM ; [facility] Td 1 Complete (Reported) Keiry ent Last Documented On 2 1:28PM ; [facility] Allergies Includes: Active Allergies No Known Allergies Encounters Encounter Provider Location Date Check-In Time Check-Out Time Diagnosis [employer] EXAM NANCY CHEN M.D. [facility] TECH WRITER 04/24/19 12 12:39PM 1:41PM Normal Female Exam,Other Screening For Malignant Neoplasm of Breast Z12.39,Screening Malig. Neoplasm Rectum,Asymptomat ic Postmenopausal Status Clinical Notes Includes: Clinical Notes from this encounter No Clinical Notes Recorded
--- OUTSIDE RECORDS SUMMARY | 2024-05-21 11:08 | XMS_ITS | Encounter Summary ---
Author Organization [facility] Healthcare Address [address] [place] [id number] Care Team Providers Care Produce Assistant Name Role Phone Memo Knox MD Primary Care Provider Amina Kaye NP Unavailable [phone] Kali Espino MD PhD Unavailable [phone] Justin Reid MD Unavailable [phone] Jeffrey Padgett MD Unavailable [phone] Aris Shipley MD Unavailable Reason for Visit * Reason Onset Date Comments Scheduling Appointments 10/01/2019 Called f or DEXA appointment reminder Encounter Details Date Type Department Care Team (Late st Contact Info) Description 10/01/2019 Telephone [facility] [address] [place] [id number] Tara Marquez RT Scheduling Appointments (Called for DEXA appointment reminder) Social History Tobacco Use Types Packs/Day Years Used Date Smoking Tobacco: Former Smokeless Tobacco: Never Alcohol Use Standard Drinks/Week Comments No 0 (1 standard drink = 0.6 oz pur e alcohol) PHQ-2 Answer Date Recorded PHQ-2 Score 0 12/07/2018 Comments No Sex and Gender Information Value Date Recorded Sex Assigned at Not on file Legal Sex Female 11:53 PM CO FOUNDER Gender Identity Not on file Sexual Orientation Not on file documented as of this encounter Plan of Treatment Not on file documented as of this encounter Visit Diagnoses Not on filedocumented in this encounter Additional Health Concerns Infection Onset Date Last Indicated Resolved Time COVID: Suspected 06/07/2023 06/07/2023 06/07/2023 2:54 PM CO FOUNDER Influenza, adult 06/07/2023 06/07/2023 06/14/2023 3:05 AM CO FOUNDER documented as of this encounter Care Teams Produce Assistant Relationship Specialty Start Date End Date Memo Knox MD PCP - General 07/12/16 Amina Kaye, FORREST Nurse Practitioner Nurse Practitioner 07/02/17 4 Kali Espino MD PhD [address] [place] [id number] Radiation Oncologist Radiation Oncology 02/07/2201/31 Justin Reid MD [address] [place] [id number] Consulting Physician Hematology and Oncology 02/07/22 Jeffrey Padgett MD [address] [place] [id number] Surgeon General Surgery 02/07/22 02/01/24 Aris Shipley MD [address] [facility] [address] [place] [address] Interventional Cardiology 08/15/23 documented as of this encounter
--- OUTSIDE RECORDS SUMMARY | 2024-05-21 11:08 | XMS_ITS | Referral Summary ---
Author Organization [facility] Address [address] [place] [address] Care Team Providers Care Sample Coordinator Name Role Phone Memo Knox MD Primary Care Provider Justin Pena MD Unavailable [phone] Aris Shipley MD Unavailable Encounters Date Type Department Care Team Description 05/20/2024 Telephone [facility] Oncology 4 [facility] Medical Office [address] [place] [phone] Justin Pena MD 03/18/2024 7:30 AM TECHNOLOGY RECRUITER - 03/18/2024 8:40 AM TECHNOLOGY RECRUITER Surgery [facility] Operating Room [address] [place] [address] Stew Magallon MD LEFT LITHOTRIPSY EXTRACORPOREAL SHOCK WAVE - ESWL 03/18/2024 7:34 AM TECHNOLOGY RECRUITER Anesthesia Event [facility] Operating Room [address] [place] [address] Kieran Damon MD Reynolds, Ethan Emerson, MD 03/18/2024 6:16 AM TECHNOLOGY RECRUITER - 03/18/2024 10:31 AM TECHNOLOGY RECRUITER Hospital Encounter [facility] Operating Room [address] [place] [address] Stew Magallon MD Discharge Disposition: Discharge to home or self care 03/10/2024 Telephone [facility] Medical [facility] Primary Care at [place] [address] [facility] [address] [place] [phone] Memo Knox MD 03/05/2024 7:53 PM TECHNOLOGY RECRUITER - 03/05/2024 11:59 PM TECHNOLOGY RECRUITER Hospital Encounter [facility] [address] [place] [address] Acquired hypothyroidism; Hypophosphatemia; Hyponatremia; Benign hypertension; Mixed hyperlipidemia; Vitamin D deficiency Discharge Disposition: Discharge to home or self care 03/05/2024 1:30 PM TECHNOLOGY RECRUITER Lab [facility] Medical Group Outpatient Lab at [address] [phone] Acquired hypothyroidism (Primary Dx) 03/04/2024 Telephone [facility] Medical Group Cardiology [address] [place] [address] Aris Shipley MD 03/04/2024 9:20 AM TECHNOLOGY RECRUITER - 03/04/2024 11:59 PM TECHNOLOGY RECRUITER Hospital Encounter [facility] [address] [place] [address] Discharge Disposition: Discharge to home or self care 03/04/2024 11:00 AM TECHNOLOGY RECRUITER Anesthesia Event [facility] Operating Room [address] [place] [address] Kieran Damon MD Reynolds, Javed Figueroa MD 03/04/2024 9:15 AM TECHNOLOGY RECRUITER - 03/04/2024 10:00 AM TECHNOLOGY RECRUITER Hospital Encounter [facility] Operating Room [address] [place] [address] Stew Magallon MD Discharge Disposition: Discharge to home or self care from Last 3 Months Allergies No known active allergies Medications lutein [...] 1 tablet (75 mcg total) 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 90 tablet 3 4 Active [...] 01/14/2022:Stage 0(pTis (DCIS), cN0, cM0, G2, ER+, RI+, HER2: Not Assessed) - Signed by Kali Espino MD PhD on 02/07/2022 Overview (01/09/2022): Added automatically from request for surgery [id number] Nonrheumatic aortic valve stenosis 11/05/2021 BOYCE (dyspnea [...] (05/29/2022): Added automatically from request for surgery [id number] 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 Cardiac arrest 07/02/2017 10/09/2017 Simple goiter 08/28/2013 10/09/2017 Overview (07/19/2016): SIMPLE GOITER Snoring 09/10/2011 10/09/2017 Overview (07/19/2016): Snoring Immunizations Name Administration Dates Next Due Influenza, [...] 09/07/2010 ZOSTER LIVE 08/20/2011 ZOSTER Recombinant 04/19/2019,02/15/2019 Social History Tobacco Use Types Packs/Day Years Used Date Smoking Tobacco: Former Cigarettes Smokeless Tobacco: Never Tobacco Cessation:Counseling Given: Not Answered Comments:30 years ago Alcohol Use Standard Drinks/Week Comments No 0 (1 standard drink = 0.6 oz pur e alcohol) [facility] Utilities Answer Date Recorded In the past 12 months has e [employer], gas, oil, or water [facility] threatened to shut off services in your [...] often do you attend chur ch or faith services? Never 03/14/2023 Do you belong to any clubs o r organizations such as jew groups, unions, fraternal or athletic groups, or [...] place to sleep or slept in a mcfp (including now)? No 03/14/2023 Personal Safety Answer Date Recorded Have you ever been in or are you currently in a harmful physical or emotional relationship or is someone making you feel afraid or unsafe? Denies 03/18/2024 Comments No Sex and Gender Information Value Date Recorded Sex Assigned at Not on file Legal Sex Female 11:53 PM TECHNOLOGY RECRUITER Gender Identity Not on file Sexual Orientation Not on file Last Filed Vital Signs Vital Sign Reading Time Taken Comments Blood Pressure 132/76 03/18/2024 3:16 PM TECHNOLOGY RECRUITER Pulse 64 03/18/2024 3:16 PM TECHNOLOGY RECRUITER Temperature 36.4 C (97.6 F) 03/18/2024 3:16 PM TECHNOLOGY RECRUITER Respiratory Rate 18 03/18/2024 3:16 PM TECHNOLOGY RECRUITER Oxygen Saturation 97% 03/18/2024 3:16 PM TECHNOLOGY RECRUITER Inhaled Oxygen Concentration - - Weight 71.5 kg (157 lb 10.1 oz) 03/18/2024 6:25 AM TECHNOLOGY RECRUITER Height 157.5 cm (5' 2 ) 03/18/2024 6:25 AM TECHNOLOGY RECRUITER Body Mass Index 28.83 03/18/2024 6:25 AM TECHNOLOGY RECRUITER Plan of Treatment Not on file Medical Devices Implanted Type Area Christian [employer] Practitioner Device Identifier Shelf Expiration Date Model / Serial / Lot Marker Breast Biopsy Mammomark Cormark Collagen Titanium U Tissue Mammotome Revolve 8 Ga Probe - [id number] - [id number] Implanted:Qty: 1 on 06/20/2017 at [facility] Breast Left: Breast [employer] 03/01/2018 [id number] / [id number] / [employer] Mammostar Tissue Barbell Marker Breast Biopsy Beta Glucan Ceramic [id number] - [id number] Implanted:Qty: 1 on 12/26/2021 at [facility] Clip [employer] [id number] 08/14/2026 [id number] / / [id number] Access Closure Inc Device 10ml 5fr Closure Mynx Control 2 Mode Balloon Catheter [id number] - [id number] Implanted:Qty: 1 on 02/06/2023 by Aris Shipley MD at [facility] Access [employer]osure Inc 03/13/2024 [id number] / / [id number] [employer] Device Clsr Perclose Prostyle Sut-Mediatd Closure-Repair Sys 80977-50 - [id number] Implanted:Qty: 1 on 03/13/2023 by Aris Shipley MD at [facility] [employer] 11/11/2024 [id number] / / [id number] [employer] Kit Valve Coronary Aortic Tissue Pedro 3 Ultra 23mm [id number] - [id number] - [id number] Implanted:Qty: 1 on 03/13/2023 by Aris Shipley MD at [facility] [employer] 11/27/2025 [id number] / [id number] / [employer] Device Vascular Closure Femoral Artery Bioabsorbable Dual Method Vascade 6-7fr Collagen [id number] - [id number] Implanted:Qty: 1 on 03/13/2023 by Aris Shipley MD at [facility] [employer] 07/22/2024 [id number] / / [id number] Explanted Type Area Christian [employer] Practitioner Device Identifier Shelf Expiration Date Model / Serial / Lot Infant Room Teacher [employer] [place] 20ga 5cm Reposition J Curve Wire Centimeter Joss Stabilizer [id number] - [id number] - [id number] Explanted:Qty: 1 on 01/14/2022 at [facility] Breast Right: Breast [employer] 12/01/2026 [id number] / Description:Implanted by Dr. Salinas prior to surgery, explanted by surgeon Procedures Procedure Name Priority Date/Time Associated Diagnosis Comments RI AN ELECTIVE SUPRAGLOTTIC AIRWAY Routine 03/18/2024 7:52 AM TECHNOLOGY RECRUITER LITHOTRIPSY EXTRACORPOREAL SHOCK WAVE - ESWL 03/18/2024 7:34 AM TECHNOLOGY RECRUITER Calculus of kidney ECG 12-LEAD STAT 03/18/2024 7:00 AM TECHNOLOGY RECRUITER XR KUB IP Routine 03/18/2024 6:38 AM TECHNOLOGY RECRUITER EGFR Routine 03/05/2024 3:00 PM TECHNOLOGY RECRUITER Hypophosphatemia Hyponatremia Benign hypertension Mixed hyperlipidemia PHENYTOIN LEVEL, TOTAL Routine 03/05/2024 3:00 PM TECHNOLOGY RECRUITER Hypophosphatemia Hyponatremia Benign hypertension Mixed hyperlipidemia VITAMIN D 25 HYDROXY Routine 03/05/2024 3:00 PM TECHNOLOGY RECRUITER Vitamin D deficiency COMPREHENSIVE METABOLIC PANEL Routine 03/05/2024 3:00 PM TECHNOLOGY RECRUITER Hypophosphatemia Hyponatremia Benign hypertension Mixed hyperlipidemia LIPID PANEL Routine 03/05/2024 3:00 PM TECHNOLOGY RECRUITER Hypophosphatemia Hyponatremia Benign hypertension Mixed hyperlipidemia TSH Routine 03/05/2024 3:00 PM TECHNOLOGY RECRUITER Acquired hypothyroidism XR KUB IP Routine 03/04/2024 9:34 AM TECHNOLOGY RECRUITER DIAGNOSTIC MAMMOGRAM BILATERAL W RAMON Schedule Routine, Read Routine (OP Routine) 12/26/2023 9:06 AM CDT Malignant neoplasm of central portion of right breast in female, estrogen receptor positive (HCC) DEXA AXIAL SKELETON BONE DENSITY 1 OR MORE SITES Schedule Routine, Read Routine (OP Routine) 05/15/2023 10:32 AM TECHNOLOGY RECRUITER History of ongoing treatment with high-risk medication 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 aromatase inhibitors STOOL DNA COLOGUARD Routine 02/09/2020 6:30 AM CDT Colon cancer screening Screening for rectal cancer from Last 3 Months or Most Recently Relevant to Health Maintenance Results * RI AN ELECTIVE SUPRAGLOTTIC AIRWAY (03/18/2024 7:52 AM TECHNOLOGY RECRUITER) Narrative Abdiel Parson CRNA - 03/18/2024 7:52 AM TECHNOLOGY RECRUITER Abdiel Parson CRNA 03/18/2024 7:52 AM Airway [...] of attempts: 1 Planned trial extubation: yes Kieran Damon MD ANESTHESIA ORDERABLES Fi nal Result * ECG 12 lead (03/18/2024 7:00 AM TECHNOLOGY RECRUITER) 03/18/2024 7:00 AM TECHNOLOGY RECRUITER Narrative [facility] - 03/18/2024 8:48 AM TECHNOLOGY RECRUITER Vent Rate: 69 bpm RR Interval: 865 msec RI Interval: 216 msec QRS Duration: 96 msec QT Interval: 423 msec QTC Interval: 442 msec P-R-T [place]: 41 - -6 - 2 degrees IMPRESSION: [...] decreased Electronically Signed By: Thiago Levine MD us Javed Sanchez MD ECG ORDERABLES Final Result [facility] * XR Kub (03/18/2024 6:38 AM TECHNOLOGY RECRUITER) Anatomical Region Laterality Modality Body, Abdomen N/A Computed Radiogr aphy 03/21/2024 4:05 PM TECHNOLOGY RECRUITER Narrative 03/21/2024 4:09 PM TECHNOLOGY RECRUITER EXAM DESCRIPTION: XR KUB REASON FOR STUDY: [...] Krish Weston M.D. SAW: SAW Report ID: [id number] Reading Location: [id number] Procedure Note Cornelius Wseton MD - 03/21/2024 EXAM DESCRIPTION: XR KUB [...] Krish Weston M.D. SAW: SAW Report ID: [id number] Reading Location: [place] [address] Stew Magallon MD IMG XR PROCEDURES Fi nal Result * eGFR (03/05/2024 3:00 PM TECHNOLOGY RECRUITER) Pathologist [facility] eGFR 70 >=60 mL/min/1. 73 m2 Comment: [...] last reviewed 2021. Blood 03/05/2024 3:00 PM TECHNOLOGY RECRUITER 03/05/2024 8:45 PM TECHNOLOGY RECRUITER Tyron FELICIANO LAB BLOOD ORDERABLES Fi nal Result LILIANA CASTRO [address] [place] [address] * Vitamin D 25 hydroxy (03/05/2024 3:00 PM TECHNOLOGY RECRUITER) Pathologist [facility] Vitamin D 25-OH 34 30 - 80 ng/mL Blood 03/05/2024 3:00 PM TECHNOLOGY RECRUITER 03/05/2024 8:24 PM TECHNOLOGY RECRUITER Result [facility] Tyron FELICIANO LAB BLOOD ORDERABLES Fi nal Result Performing Organization Address [facility] de Phone Number LILIANA CASTRO [address] [facility] [place] [address] * TSH (03/05/2024 3:00 PM TECHNOLOGY RECRUITER) [facility] Thyroid Stimulating Hormone 0.46 0.30 - 4.20 mcIUnit/mL Blood 03/05/2024 3:00 PM TECHNOLOGY RECRUITER 03/05/2024 8:24 PM TECHNOLOGY RECRUITER Result [facility] Tyron FELICIANO LAB BLOOD ORDERABLES Fi nal Result Performing Organization Address [facility] Phone Number LILIANA [address] [place] [address] * (ABNORMAL) Phenytoin level, total (03/05/2024 3:00 PM TECHNOLOGY RECRUITER) [facility] Phenytoin <0.8(L) 10.0 - 20.0 mcg/mL Blood 03/05/2024 3:00 PM TECHNOLOGY RECRUITER 03/05/2024 8:24 PM TECHNOLOGY RECRUITER Result [facility] Tyron FELICIANO LAB BLOOD ORDERABLES Fi nal Result Performing Organization Address [facility] Phone Number LILIANA [address] [address] [facility] [place] [address] * (ABNORMAL) Lipid panel (03/05/2024 3:00 PM TECHNOLOGY RECRUITER) [facility] Cholesterol 170 30 - 199 mg/dL Comment: [...] on 2017. Triglycerides 239(H) <=149 mg/dL LILIANA Comment: Interpretive Data Ages < or = [...] on 2017. HDL 64 >=40 mg/dL LILIANA Comment: Interpretive Data Ages < or = [...] 2017. LDL, calculated 68 <=129 mg/dL LILIANA Comment: Interpretive Data Ages < or = 19 years Acceptable: <110 mg/dL Borderline high: 110-129 mg/dL High: >or= 130 mg/dL Ages > or = 20 years Optimal: <100 mg/dL Near optimal: 100-129 mg/dL Borderline high: 130-159 mg/dL High: >160 mg/dL Calculated using the Cox LDL-C estimating equation. This equation was implemented on 2023. Prior to this date LDL-C was estimated using the Friedewald equation. Literature References: 1. Expert Panel on Integrated Guidelines for Cardiovascular Health and Risk Reduction in Children and Adolescents. Pediatrics 2011;128:S213 2. NCEP Expert Panel. Circulation 2004;110:227 3. Kenny M et al. CHEMO Cardiol. 2020 August 12;5(5):540-548. doi: 10.1001/jamacardio.2020.0013 Current Interpretive Data was last revised on 2023. Non-HDL Cholesterol 106 mg/dL CERNER Comment: Interpretive Data Ages < or = [...] last revised on 2017. Chol/HDL ratio 3 CERNER CH Blood 03/05/2024 3:00 PM TECHNOLOGY RECRUITER 03/05/2024 8:24 PM TECHNOLOGY RECRUITER Tyron FELICIANO LAB BLOOD ORDERABLES nal Result LILIANA [address] [place] [address] * Comprehensive metabolic panel (03/05/2024 3:00 PM TECHNOLOGY RECRUITER) Sodium 135 135 - 145 mmol/L Potassium, pl 3.6 3.3 - 4.9 mmol/L CERNER CH Chloride 97 97 - 110 mmol/L CERNER CH CO2 26 22 - 32 mmol/L CERNER CH Anion gap 12 2 - 15 mmol/L CERNER CH BUN 8 6 - 25 mg/dL CERNER CH Creatinine 0.84 0.60 - 1.10 mg/dL CERNER CH Glucose 151 70 - 199 mg/dL CERNER Comment: Interpretive Data Fasting glucose >/= 126 [...] Units/L CERNER CH Blood 03/05/2024 3:00 PM TECHNOLOGY RECRUITER 03/05/2024 8:24 PM TECHNOLOGY RECRUITER Tyron FELICIANO LAB BLOOD ORDERABLES Fi nal Result [facility] [address] [place] [address] * XR Kub (03/04/2024 9:34 AM TECHNOLOGY RECRUITER) Anatomical Region Laterality Modality Body, Abdomen N/A Computed Radiogr aphy 03/07/2024 6:34 PM TECHNOLOGY RECRUITER Narrative 03/07/2024 6:38 PM TECHNOLOGY RECRUITER EXAM DESCRIPTION: XR KUB REASON FOR STUDY: [...] 6:38 PM - Electronically signed by Jeanmarie FIERRO: VADIM Report ID: [id number] Reading Location: [id number] Procedure Note Jeanmarie Montoya MD - 03/07/2024 [...] 6:38 PM - Electronically signed by Jeanmarie FIERRO: VADIM Report ID: [id number] Reading Location: [id number] Stew Magallon MD IMG XR PROCEDURES Fi nal Result * Diagnostic Mammogram Bilateral W Ramon (12/26/2023 9:06 AM CDT) Anatomical Region Laterality Modality Breast Bilateral Mammography 12/26/2023 9:16 AM CDT Impressions 12/26/2023 9:16 AM CDT 1. Unchanged expected mammographic appearance of the right breast following conservation therapy for breast cancer (in 2021). 2. No new suspicious mammographic finding in either breast. Per C guidelines, bilateral diagnostic mammogram in one year [...] breast on mammogram. 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 (Demond Packer et al, N Engl J Med 2014;370(14):9144-5633) The normal value (reference range) for this assay is negative. COLOGUARD RE-SCREENING RECOMMENDATION: Periodic routine colorectal cancer screening is an important part of preventive healthcare for asymptomatic persons at average risk for colorectal cancer. Following a negative Cologuard result, the [place] Cancer Society and U.S. Multi-Society Task Force screening guidelines recommend a Cologuard re-screening interval of 3 years. References: [place] Cancer Society (ACS). Colorectal cancer prevention and early detection. [place], [place]: [place] Cancer Society; [updated 2015Aug 05]. https://www.cancer.org/cancer/isbvi-swfkip-jwjhqe/pnqbnpkgo-smwaewijc-reyatny/ac s-rec ommendations.html. Accessed December 12, 2017; Nelson DK, Efraín CR, Randi BealK, Colorectal Cancer Screening: Recommendations for Physicians and Patients from the U.S. Multi-Society Task Force on Colorectal Cancer Screening, Am J Gastroenterology 2017; 112:6118-4339. TEST TYPE: Composite algorithmic analysis of stool [...] interval of every 3 years by the [place] Cancer Society and U.S. Multi-Society Task Force. [...] can be accessed at the following location: www.[employer].Surikate/results. Additional description of the Cologuard test process, warnings and precautions can be found at www.cologuardtest.com. Rx only. Stool 02/09/2020 6:30 AM CDT 02/10/2020 12:29 PM CDT Memo Knox MD LAB BODY FLUIDS AND STO OLS ORDERABLES Final Result [facility] (CLIA #:[id number]) [place] [address] [place] [address] from Last 3 Months or Most Recently Relevant to Health Maintenance Insurance [employer] MEDICARE [facility] Member Subscriber Plan / Payer ( fective 2018-) Name:Mini Cano Relation to Subscriber:Self Name:Mini Cano Payer ID:[id number] Group ID:Not on file Type:COMMERCIAL Address: [facility] [id number] [facility] Address: [facility] [address] [place] [address] [employer] MEDICARE [facility] Advance Directives For more information, please contact: [phone] Documents on File Type Date Recorded 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 ADVANCE DIRECTIVE 03/17/2023 7:48 PM POWER OF SENIOR DESIGNER-MEDICAL Power of Head Pastry Chef 03/14/2023 11:35 AM * Full Code (Latest Code Status on File) Date Activated Date Inactivated Comments 07/01/2017 7:46 PM 07/02/2017 11:07 PM Healthcare Agents on File Name Relationship Healthcare Agent Relationshi p Communication Aimee Cano Daughter Health Care Agent Care Teams Sample Coordinator Relationship Specialty Start Date End Date Memo Knox MD PCP - General 07/12/16 Justin Pena MD Consulting Physician Hematology and Oncology 02/07/22 Aris Shipley MD [address] [place] [address] Interventional Cardiology 08/15/23
== END 2024-05-21 10:24 | disposition home or self-care (01) ==
PROVIDERS: PCP Internal Medicine; Visit Provider Urology
DX: N20.0 Calculus of kidney (principal)
CPT/HCPCS: 74018